=== PATIENT | male | born 1955 | race Caucasian/White ===

== ENCOUNTER 2017-03-31 05:30 | Inpatient (IN) | payer OTHER ==
[2017-03-29 13:22] LABS: BASOPHILS # (AUTO) 0.1 (0.0-0.1); BASOPHILS % 0.4 % (0.0-1.0); EOSINOPHILS # (AUTO) 0.2 (0.0-0.4); HEMATOCRIT 43.4 % (38.2-49.6); HEMOGLOBIN 14.9 g/dL (14.0-18.0); LYMPHOCYTES # (AUTO) 1.3 (1.0-3.2); MEAN CORPUSCULAR HEMOGLOBIN 33.6 pg (28-32); MEAN CORPUSCULAR HGB CONC 34.3 g/dL (31-35); MONOCYTES # (AUTO) 1.1 (0.2-0.8); MONOCYTES % 7.8 % (4.4-11.3); NEUTROPHILS # (AUTO) 11.6 (2.1-6.9); NEUTROPHILS % 81.3 % (38.7-80.0); PLATELET COUNT 469 x10e3/uL (140-360); RED BLOOD COUNT 4.43 x10e6/uL (4.3-5.7)
[2017-03-29 13:44] LABS: ALANINE AMINOTRANSFERASE 20 IU/L (0-55); ALBUMIN 3.7 g/dL (3.5-5.0); ALKALINE PHOSPHATASE 67 IU/L (40-150); ANION GAP 12.2 mmol/L (8-16); BLOOD UREA NITROGEN 15 mg/dL (7-26); BUN/CREATININE RATIO 14 (6-25); CALCIUM 9.5 mg/dL (8.4-10.2); CARBON DIOXIDE 27 mmol/L (22-29); CHLORIDE 102 mmol/L (98-107); CREATININE, SERUM 1.06 mg/dL (0.72-1.25); EST GLOMERULAR FILTRATION RATE > 60 ML/MIN (60-); GLUCOSE 99 mg/dL (74-118); POTASSIUM 4.2 mmol/L (3.5-5.1); SODIUM 137 mmol/L (136-145)
--- NOTE | 2017-03-29 13:50 | Diagnostic Imaging Report ---
PROCEDURE: Frontal and lateral views of the chest. COMPARISON: None. INDICATIONS: PREOPERATIVE CHEST XRAY FOR BLADDER SURGERY FINDINGS: Lines/tubes: None. Lungs: The lungs are well inflated and clear. Right upper lobe azygous lobe. There is no evidence of pneumonia or pulmonary edema. Pleura: There is no pleural effusion or pneumothorax. Heart and mediastinum: The heart and the mediastinum are normal. Bones: No acute bony abnormality. IMPRESSION: No acute cardiopulmonary disease. Dictated by: Kendell Boyle M.D. on 03/29/2017 at 13:58 Electronically approved by: Kendell Boyle M.D. on 03/29/2017 at 13:58
[~2017-03-31] VITALS: Ht 182.9 cm; Wt 88.9 kg
[2017-03-31] VITALS (39 sets, daily range): BP systolic 130–161; BP diastolic 76–110
[2017-03-31] MEDS ORDERED: CEFAZOLIN SOD 1 GM/NS 50ML 50 ML IV ONE (05:32)
[2017-03-31] MEDS ORDERED: CLINDAMYCIN 300MG 50 ML IV ONE (05:33)
[2017-03-31 06:07] LABS: BASOPHILS # (AUTO) 0.1 (0.0-0.1); BASOPHILS % 0.6 % (0.0-1.0); EOSINOPHILS # (AUTO) 0.2 (0.0-0.4); EOSINOPHILS % 1.3 % (0.0-6.0); HEMOGLOBIN 14.4 g/dL (14.0-18.0); LYMPHOCYTES # (AUTO) 1.1 (1.0-3.2); LYMPHOCYTES % 7.4 % (18.0-39.1); MEAN CORPUSCULAR HEMOGLOBIN 33.5 pg (28-32); MEAN CORPUSCULAR HGB CONC 34.3 g/dL (31-35); MEAN CORPUSCULAR VOLUME 97.7 fL (81-99); MONOCYTES % 6.8 % (4.4-11.3); NEUTROPHILS # (AUTO) 12.1 (2.1-6.9); NEUTROPHILS % 83.3 % (38.7-80.0); PLATELET COUNT 448 x10e3/uL (140-360); RED CELL DISTRIBUTION WIDTH 13.2 % (11.7-14.4)
[2017-03-31] MEDS: GENTAMICIN 80MG/NS 100 ML 100 ML IV SCH ×2 (06:19→18:27)
[2017-03-31] MEDS ORDERED: ACETAMINOPHEN 1000 MG/100 ML IV PRN (12:15)
[2017-03-31] MEDS ORDERED: DIPHENHYDRAMINE HCL INJ 50 MG/ML VIAL IM PRN (12:15)
[2017-03-31] MEDS ORDERED: ONDANSETRON HCL INJ 2 MG/ML VIAL IV PRN (12:15)
[2017-03-31] MEDS ORDERED: NALOXONE HCL INJ 0.4 MG/ML AMP IV PRN (12:15)
[2017-03-31] MEDS ORDERED: HYDROMORPHONE 2MG/ML INJ ONE (12:20)
[2017-03-31] MEDS ORDERED: MORPHINE SULFATE 1 MG/ML 30ML PCA ONE (13:08)
[2017-03-31] MEDS ORDERED: CEFAZOLIN SOD 1 GM/NS 50ML 50 ML IV SCH (14:00)
--- NOTE | 2017-03-31 14:06 | Diagnostic Imaging Report ---
PROCEDURE: CHEST SINGLE (PORTABLE) COMPARISON: Chest x-ray 03/29/17 INDICATIONS: POSSIBLE PNEUMOTHORAX FINDINGS: Portable image obtained at 1223 hrs. LUNGS: Lung volumes are low with prominent pulmonary vasculature and interstitial lung markings. Azygos lobe and fissure are present. There is focal consolidation in the base of the right lung. PLEURA: No large effusions. No pneumothorax. HEART \T\ MEDIASTINUM: Enteric tube extends past the diaphragm. The heart is top normal in size. BONES \T\ SOFT TISSUES: No acute findings. CONCLUSION: Low lung volumes and potential infiltrate in the right lung base. No pneumothorax. Dictated by: Braxton Hilliard M.D. on 03/31/2017 at 14:13 Electronically approved by: Braxton Hilliard M.D. on 03/31/2017 at 14:13
[2017-03-31] MEDS: D5.45%NS/KCL 20MEQ 1,000 ML IV SCH ×2 (15:10→20:02)
[2017-03-31] MEDS: CEFAZOLIN SOD 1 GM VIAL IV SCH (16:00)
[2017-03-31] MEDS: SODIUM CHLORIDE 0.9% 250ML IRRIG IR SCH ×3 (16:15→20:04)
[2017-03-31] MEDS ORDERED: SEVOFLURANE INHAL SOLN 250 ML PEN BTL ONE (18:19)
[2017-03-31] MEDS ORDERED: DEXAMETHASONE SOD PHOS INJ 4 MG/ML VIAL ONE (18:19)
[2017-03-31] MEDS ORDERED: ROCURONIUM BROMIDE 10 MG/ML 5ML VIAL ONE (18:19)
[2017-03-31] MEDS ORDERED: LIDOCAINE HCL 2% JELLY 5 ML TUBE ONE (18:19)
[2017-03-31] MEDS ORDERED: GLYCOPYRROLATE INJ 1MG/ 5 ML SYR ONE (18:19)
[2017-03-31] MEDS ORDERED: LIDOCAINE HCL 2% LOCAL INJ 5 ML SDV VIAL INJ ONE (18:19)
[2017-03-31] MEDS ORDERED: EPHEDRINE SULFATE INJ 50 MG/10 ML SYR ONE (18:19)
[2017-03-31] MEDS ORDERED: PROPOFOL IV EMULSION 10 MG/ML 20 ML VIAL ONE (18:19)
[2017-03-31] MEDS ORDERED: NEOSTIGMINE 5 MG/5ML SYR ONE (18:19)
[2017-03-31] MEDS ORDERED: ACETAMINOPHEN 1000 MG/100 ML IV ONE (18:19)
[2017-03-31] MEDS ORDERED: ONDANSETRON HCL INJ 2 MG/ML VIAL ONE (18:19)
[2017-03-31] MEDS ORDERED: MIDAZOLAM HCL 2 MG/2 ML VIAL ONE (18:34)
[2017-03-31] MEDS ORDERED: MORPHINE SULFATE INJ 10 MG/ML ONE (18:34)
[2017-03-31] MEDS ORDERED: FENTANYL CITRATE/PF 100MCG/2 ML INJ ONE (18:34)
[2017-03-31] MEDS: MORPHINE SULFATE 1 MG/ML 30ML PCA IV PRN (20:03)
[2017-04-01] VITALS (44 sets, daily range): BP systolic 122–158; BP diastolic 63–93
[2017-04-01] MEDS: CEFAZOLIN SOD 1 GM VIAL IV SCH ×3 (00:02→17:05)
[2017-04-01] MEDS: SODIUM CHLORIDE 0.9% 250ML IRRIG IR SCH ×7 (00:02→22:02)
[2017-04-01] MEDS: MORPHINE SULFATE 1 MG/ML 30ML PCA IV PRN ×2 (01:24→06:45)
[2017-04-01] MEDS: D5.45%NS/KCL 20MEQ 1,000 ML IV SCH ×3 (03:47→20:01)
[2017-04-01 05:37] LABS: BASOPHILS % 0.3 % (0.0-1.0); EOSINOPHILS # (AUTO) 0.1 (0.0-0.4); EOSINOPHILS % 0.5 % (0.0-6.0); HEMATOCRIT 41.5 % (38.2-49.6); HEMOGLOBIN 13.7 g/dL (14.0-18.0); LYMPHOCYTES # (AUTO) 1.1 (1.0-3.2); LYMPHOCYTES % 8.8 % (18.0-39.1); MEAN CORPUSCULAR HEMOGLOBIN 33.2 pg (28-32); MEAN CORPUSCULAR VOLUME 100.5 fL (81-99); MONOCYTES # (AUTO) 1.3 (0.2-0.8); MONOCYTES % 9.9 % (4.4-11.3); NEUTROPHILS # (AUTO) 10.3 (2.1-6.9); PLATELET COUNT 439 x10e3/uL (140-360); RED BLOOD COUNT 4.13 x10e6/uL (4.3-5.7); RED CELL DISTRIBUTION WIDTH 13.5 % (11.7-14.4)
[2017-04-01 06:06] LABS: ANION GAP 11.9 mmol/L (8-16); BLOOD UREA NITROGEN 7 mg/dL (7-26); BUN/CREATININE RATIO 8 (6-25); CALCIUM 8.4 mg/dL (8.4-10.2); CARBON DIOXIDE 25 mmol/L (22-29); CHLORIDE 109 mmol/L (98-107); CREATININE, SERUM 0.93 mg/dL (0.72-1.25); EST GLOMERULAR FILTRATION RATE > 60 ML/MIN (60-); GLUCOSE 150 mg/dL (74-118); POTASSIUM 3.9 mmol/L (3.5-5.1); SODIUM 142 mmol/L (136-145)
[2017-04-01] MEDS ORDERED: ACETAMINOPHEN 1000 MG/100 ML IV PRN (10:30)
--- NOTE | 2017-04-01 10:55 | History and Physical ---
PRIMARY CARE PROVIDER: Dr. Mikie Sanchez. Foundry Patternmaker: Dr. Juan Lovett. CHIEF COMPLAINT: Postoperative care. for invasive urinary bladder cancer. HISTORY OF PRESENT ILLNESS: Patient is a 61-year-old male with history of urinary bladder cancer diagnosed in March 2016. The patient is now status post radical cystoprostatectomy with urinary bladder exploration and subsequent ileal conduit diversion. The patient had invasive urinary bladder cancer. He now has a Araujo catheter in place. He had an ileal conduit nasogastric tube on the left nostril area. The patient is able in ICU. He has not had passed any flatus. The patient is otherwise stable. PAST MEDICAL HISTORY: Urinary bladder cancer, invasive, metastasis. ALLERGIES: NO KNOWN DRUG ALLERGIES. HOME MEDICATIONS: None. SOCIAL HISTORY: Patient does not smoke or use alcohol. No recreational drugs. REVIEW OF SYSTEMS: The patient has postoperative pain. Uncomfortable. He has not passed any gas. No neurological deficit. PHYSICAL EXAMINATION: VITAL SIGNS: Temperature is 97. Blood pressure 133/73. Pulse rate 96. Respirations 18. GENERAL: The patient is not in any acute distress. He is awake. HEENT: Normocephalic, atraumatic, anicteric. NG tube. NECK: Grossly supple. No JVD. PULMONARY: Diminished breath sounds without any wheezing. CARDIOVASCULAR: S1 and S2. Regular rate and rhythm. ABDOMEN: Is status post surgical intervention with the ileal conduit. : : A Araujo catheter in place. EXTREMITIES: No cyanosis or edema. NEUROLOGIC: No focal deficit. LABORATORY: Sodium is 142, potassium 3.9, chloride 104, bicarb 25, BUN 7, creatinine 0.9. Glucose 150. WBC 12.8. Hemoglobin 13.7. Hematocrit 41.5 and platelets 439,000. IMPRESSION: 1. Status post ileal conduit with radical cystectomy and prostatectomy. 2. Postoperative care. PLAN: Continue with management. Pain control. Araujo care. Nasogastric tube with suction. PT and OT. Patient should be able to get out of the ICU. He is to be monitored closely. Increase activity. Continue with antibiotic prophylaxis. IV fluid rehydration. Job#: [id number]
[2017-04-01] MEDS: HYDROMORPHONE 2MG/ML INJ IV PRN ×3 (13:02→20:20)
--- NOTE | 2017-04-01 17:23 | Diagnostic Imaging Report ---
EXAMINATION: Chest, CHEST SINGLE (PORTABLE) INDICATION: Enteric feeding catheter placement. COMPARISON: None FINDINGS: LINES: No catheter is visualized. Heart: Normal cardiac silhouette. Vascular: The pulmonary vasculature is within normal limits. Atherosclerotic calcifications of the aortic arch. Mediastinum: No mediastinal, hilar, or axillary mass or lymphadenopathy. Lungs: No parenchymal mass. No focal consolidation. Pleura: No pleural effusion. No pneumothorax. Bones: No acute osseous abnormality. Degenerative changes of the thoracic spine. Soft tissues: Normal. Impression: No acute radiographic abnormality. Signed by: Dr. Philip Montejo M.D. on 04/01/2017 5:20 PM
[2017-04-01] MEDS: ONDANSETRON HCL INJ 2 MG/ML VIAL IV PRN (21:02)
[2017-04-02] VITALS (7 sets, daily range): BP systolic 116–154; BP diastolic 63–76
[2017-04-02] MEDS: CEFAZOLIN SOD 1 GM VIAL IV SCH ×3 (00:05→15:42)
[2017-04-02] MEDS: D5.45%NS/KCL 20MEQ 1,000 ML IV SCH ×3 (00:05→19:33)
[2017-04-02] MEDS: ONDANSETRON HCL INJ 2 MG/ML VIAL IV PRN ×2 (01:10→05:17)
[2017-04-02] MEDS: HYDROMORPHONE 2MG/ML INJ IV PRN ×3 (01:11→21:12)
[2017-04-02] MEDS: SODIUM CHLORIDE 0.9% 250ML IRRIG IR SCH ×5 (03:15→19:33)
[2017-04-02 06:12] LABS: BASOPHILS # (AUTO) 0.1 (0.0-0.1); BASOPHILS % 0.3 % (0.0-1.0); EOSINOPHILS # (AUTO) 0.1 (0.0-0.4); EOSINOPHILS % 0.3 % (0.0-6.0); HEMATOCRIT 39.3 % (38.2-49.6); HEMOGLOBIN 13.2 g/dL (14.0-18.0); LYMPHOCYTES # (AUTO) 0.9 (1.0-3.2); LYMPHOCYTES % 5.6 % (18.0-39.1); MEAN CORPUSCULAR HEMOGLOBIN 33.6 pg (28-32); MEAN CORPUSCULAR HGB CONC 33.6 g/dL (31-35); MONOCYTES # (AUTO) 1.3 (0.2-0.8); MONOCYTES % 8.2 % (4.4-11.3); NEUTROPHILS # (AUTO) 13.5 (2.1-6.9); NEUTROPHILS % 85.2 % (38.7-80.0); PLATELET COUNT 418 x10e3/uL (140-360); RED BLOOD COUNT 3.93 x10e6/uL (4.3-5.7); RED CELL DISTRIBUTION WIDTH 13.5 % (11.7-14.4)
[2017-04-02 06:34] LABS: ANION GAP 11.8 mmol/L (8-16); BLOOD UREA NITROGEN 7 mg/dL (7-26); BUN/CREATININE RATIO 7 (6-25); CARBON DIOXIDE 25 mmol/L (22-29); CHLORIDE 110 mmol/L (98-107); CREATININE, SERUM 1.04 mg/dL (0.72-1.25); EST GLOMERULAR FILTRATION RATE > 60 ML/MIN (60-); GLUCOSE 129 mg/dL (74-118); POTASSIUM 3.8 mmol/L (3.5-5.1); SODIUM 143 mmol/L (136-145)
[2017-04-02] MEDS: BISACODYL 10 MG SUPP PR PRN (15:26)
[2017-04-03] VITALS (8 sets, daily range): BP systolic 118–152; BP diastolic 67–77
[2017-04-03] MEDS: SODIUM CHLORIDE 0.9% 250ML IRRIG IR SCH (00:15)
[2017-04-03] MEDS: HYDROMORPHONE 2MG/ML INJ IV PRN ×7 (00:24→23:07)
[2017-04-03] MEDS: CEFAZOLIN SOD 1 GM VIAL IV SCH ×3 (00:24→16:57)
[2017-04-03] MEDS: BISACODYL 10 MG SUPP PR PRN (06:14)
[2017-04-03 07:27] LABS: BASOPHILS # (AUTO) 0.1 (0.0-0.1); BASOPHILS % 0.5 % (0.0-1.0); EOSINOPHILS # (AUTO) 0.3 (0.0-0.4); HEMATOCRIT 40.2 % (38.2-49.6); HEMOGLOBIN 13.3 g/dL (14.0-18.0); LYMPHOCYTES # (AUTO) 1.2 (1.0-3.2); LYMPHOCYTES % 9.6 % (18.0-39.1); MEAN CORPUSCULAR HEMOGLOBIN 33.4 pg (28-32); MEAN CORPUSCULAR HGB CONC 33.1 g/dL (31-35); MONOCYTES % 7.6 % (4.4-11.3); NEUTROPHILS # (AUTO) 10.4 (2.1-6.9); NEUTROPHILS % 79.8 % (38.7-80.0); PLATELET COUNT 464 x10e3/uL (140-360); RED BLOOD COUNT 3.98 x10e6/uL (4.3-5.7); RED CELL DISTRIBUTION WIDTH 13.6 % (11.7-14.4)
[2017-04-03 07:54] LABS: ANION GAP 14.7 mmol/L (8-16); BLOOD UREA NITROGEN 7 mg/dL (7-26); BUN/CREATININE RATIO 8 (6-25); CALCIUM 9.1 mg/dL (8.4-10.2); CARBON DIOXIDE 25 mmol/L (22-29); CHLORIDE 108 mmol/L (98-107); EST GLOMERULAR FILTRATION RATE > 60 ML/MIN (60-); GLUCOSE 112 mg/dL (74-118); POTASSIUM 3.7 mmol/L (3.5-5.1); SODIUM 144 mmol/L (136-145)
[2017-04-03] MEDS: ONDANSETRON HCL INJ 2 MG/ML VIAL IV PRN ×2 (08:09→18:36)
[2017-04-03] MEDS: POTASSIUM CHL 40 MEQ in SODIUM CHLORIDE 0.45% 1,000 ML IV SCH ×2 (09:24→23:08)
[2017-04-03] MEDS: DOCUSATE SODIUM 100 MG CAP PO SCH (16:57)
[2017-04-04] VITALS (7 sets, daily range): BP systolic 134–152; BP diastolic 69–88
[2017-04-04 06:49] LABS: BASOPHILS # (AUTO) 0.1 (0.0-0.1); BASOPHILS % 0.6 % (0.0-1.0); EOSINOPHILS # (AUTO) 0.3 (0.0-0.4); HEMATOCRIT 37.8 % (38.2-49.6); HEMOGLOBIN 12.6 g/dL (14.0-18.0); LYMPHOCYTES # (AUTO) 0.8 (1.0-3.2); LYMPHOCYTES % 6.3 % (18.0-39.1); MEAN CORPUSCULAR HEMOGLOBIN 33.1 pg (28-32); MEAN CORPUSCULAR HGB CONC 33.3 g/dL (31-35); MEAN CORPUSCULAR VOLUME 99.2 fL (81-99); MONOCYTES # (AUTO) 0.9 (0.2-0.8); MONOCYTES % 6.9 % (4.4-11.3); NEUTROPHILS # (AUTO) 10.7 (2.1-6.9); NEUTROPHILS % 83.8 % (38.7-80.0); PLATELET COUNT 401 x10e3/uL (140-360); RED BLOOD COUNT 3.81 x10e6/uL (4.3-5.7); RED CELL DISTRIBUTION WIDTH 13.1 % (11.7-14.4)
[2017-04-04] MEDS: HYDROMORPHONE 2MG/ML INJ IV PRN ×5 (06:53→21:24)
[2017-04-04 07:11] LABS: ANION GAP 14.7 mmol/L (8-16); BLOOD UREA NITROGEN 10 mg/dL (7-26); BUN/CREATININE RATIO 13 (6-25); CALCIUM 8.7 mg/dL (8.4-10.2); CARBON DIOXIDE 23 mmol/L (22-29); CHLORIDE 106 mmol/L (98-107); CREATININE, SERUM 0.78 mg/dL (0.72-1.25); EST GLOMERULAR FILTRATION RATE > 60 ML/MIN (60-); GLUCOSE 97 mg/dL (74-118); POTASSIUM 3.7 mmol/L (3.5-5.1); SODIUM 140 mmol/L (136-145)
[2017-04-04] MEDS: DOCUSATE SODIUM 100 MG CAP PO SCH ×2 (08:52→15:26)
[2017-04-04] MEDS: CEFAZOLIN SOD 1 GM VIAL IV SCH ×4 (08:56→23:34)
[2017-04-04] MEDS: POTASSIUM CHL 40 MEQ in SODIUM CHLORIDE 0.45% 1,000 ML IV SCH (13:42)
[2017-04-04] MEDS: BISACODYL 10 MG SUPP PR PRN (15:38)
[2017-04-05] VITALS: BP 131/73
[2017-04-05] MEDS: HYDROMORPHONE 2MG/ML INJ IV PRN ×2 (02:43→08:21)
[2017-04-05] MEDS: POTASSIUM CHL 40 MEQ in SODIUM CHLORIDE 0.45% 1,000 ML IV SCH (02:43)
[2017-04-05 04:00] VITALS: BP 129/67
[2017-04-05] MEDS: DOCUSATE SODIUM 100 MG CAP PO SCH ×2 (07:49→08:11)
[2017-04-05] MEDS: CEFAZOLIN SOD 1 GM VIAL IV SCH ×2 (07:49→08:11)
[2017-04-05 08:00] VITALS: BP 141/78
--- NOTE | 2017-04-05 09:09 | Discharge Summary ---
MASH TUB COOKER: Dr. Juan Lovett FINAL DIAGNOSES: 1. Status post radical cystoprostatectomy with urinary bladder exploration and subsequent ileal conduit diversion. Patient procedure was done by Dr. Juan Lovett. 2. Status post leukocytosis. 3. Postoperative care. 4. Diagnosis of invasive urinary bladder cancer. SUMMARY: [id number] male with invasive urinary bladder cancer. He is status post procedures as mentioned done by Dr. Juan Lovett with radical cystoprostatectomy with urinary bladder exploration and subsequent ileal conduit diversion. The patient is otherwise stable. He had a prolonged postoperative care post surgery. Today, the patient is stable. He had bowel movement hours. He is able to tolerate his diet. He is comfortable. Not much needed pain medication. He is comfortable. The patient is stable and discharged home today. To follow up with Dr. Juan Lovett per his instructions for postoperative care. He will get Tylenol No. 3 as needed, Colace for stool softener. Patient will continue with postoperative care with the ileal conduit care per Dr. Juan Lovett orders. Patient is stable and discharged home today. Job#: [id number]
[2017-04-05] MEDS ORDERED: PNEUMOCOCCAL VACCINE POLYVALENT 23 MCG/0.5 ML VIAL IM SCH (11:15)
[2017-04-05] MEDS ORDERED: INFLUENZA VIRUS VAC SPLIT INJ 0.5 ML SYR IM SCH (11:15)
[2017-04-05 12:11] VITALS: BP 121/64
[2017-04-05 13:28] VITALS: BP 143/76
--- NOTE | 2017-06-08 01:49 | Operative Report ---
DATE OF PROCEDURE: March 31, 2017 PREOPERATIVE DIAGNOSIS: Bladder cancer. POSTOPERATIVE DIAGNOSIS: Bladder cancer. OPERATIONS PERFORMED: Abdominal and pelvic exploration with bilateral ureteroileal conduit. BATTING MACHINE OPERATOR INSULATION: Dr. Lili Lovett. ANESTHESIA: General. COMPLICATIONS: None. CLINICAL SUMMARY: Dov Reddy is a 61-year-old man who less than a year ago was diagnosed as having bladder cancer. Patient underwent resection followed by re-evaluation, followed by an induction course of intravesical BCG for T1 disease. The patient at followup surveillance was found to have a tumor recurrence. He was taken to the operating room where resection revealed muscle invasive disease. The patient scheduled this surgery which was supposed to be a radical cystoprostatectomy with an ileal conduit and urinary diversion for right after the . Patient was brought to the operating room for said plan. He is aware of the risks of bleeding, infection, injury to adjacent structures, need for additional procedures, and elected to proceed. Patient also understands that inability to cure his bladder cancer surgically is a possibility from this surgery. OPERATIVE PROCEDURE IN DETAIL: Informed consent was verified. Dov Reddy was properly identified, taken to the operating room, placed on the operating table in supine position. Anesthesia was uneventfully begun. The patient's abdomen and genitalia and chest were shaved, prepared, and draped in usual sterile fashion. Araujo catheter was placed. Midline incision was made, carried through all layers of the abdominal wall until we reached the perivesical space infraumbilically and the peritoneal space supraumbilically. We developed our dissection and placed a self-retaining retractor. Exploration revealed that the liver was smooth. There were no tumors on the liver. The patient's tumor encasing the bladder was fixed. This tumor has grown dramatically in the last month from what appeared to be a resectable tumor by CT to a tumor that now extends posteriorly and to the right lateral wall in a completely fixed fashion. The tumor is very large as well as firm and this was obviously not resectable. We also felt it would be dangerous to attempt pelvic lymphadenectomy due to the tumor and most likely tumor involvement of the lymph nodes present and the invasive nature of this cancer. We therefore decided to divert the patient with an ileal conduit and refer him for chemotherapy as early as possible. We set up for the ureteroileal conduit. The white line of Toldt bilaterally was taken down. We exposed both ureters. Both ureters as distally as possible, ligated and divided. We made a mesenteric window at the level of the sacral promontory and brought the left ureter into the right lower quadrant. We then harvested a piece of distal ileum. This was done utilizing a AKBAR stapling device. A [id number] stapled anastomosis was performed to reconstitute bowel continuity and the mesenteric window was closed to prevent internal herniation. We then performed an end-to-side ureteral-ileal anastomoses. These anastomoses were performed over a single J-stent. Each anastomosis utilized ten 4-0 Vicryl sutures in interrupted fashion. The single-J stents were also secured to the ileal conduit with a 5-0 chromic suture. It should be noted that at exploration there was right hydroureteronephrosis. This is also a new finding from the most recent cystoscopy and retrogrades during which time there was absolutely no hydronephrosis on the right hand side. Distal ureteral margins were negative according to the pathologist. We created a stoma to the right of the umbilicus. We cut out a piece of skin and subcutaneous tissues. Cruciate incision was then made in the abdominal wall fascia and we fashioned a Carmine stoma. The loop was secured to the corners of the cruciate incision at the level of the fascia with 4 interrupted Vicryl sutures and the stoma was matured utilizing chromic suture in order to invert and approximate the mucosa to the skin. A stomal stent was also fashioned from a 24-Swazi Araujo catheter. All 3 stents were secured to the skin with nylon sutures. Through a separate stab wound, we placed a Sandor drain to drain the pelvis and the intraperitoneal space and posteriorly to the ileal conduit. This drain was also secured to the skin with a nylon suture. Copious irrigation was performed. Hemostasis was verified. The patient's abdomen was then approximated utilizing interrupted Vicryl sutures to loosely reapproximate the peritoneum and the fascia was approximated with heavy Vicryl suture in interrupted figure-of-8 fashion. The skin was approximated with skin gunjan. An appliance was applied. Dressings to the stoma. Dressings were applied and the patient was uneventfully reversed from anesthesia and taken to the recovery room in stable condition. There were no complications to the procedure. Patient tolerated the procedure well. Sponge, needle, and instrument counts were grossly correct times 2 at the end of the case. For estimated blood loss, please refer to the anesthetic record. It should be noted that we were extremely disappointed at the operative findings and surprised at aggressiveness and growth of this patient's bladder cancer. Plans will be to refer the patient as early as possible for chemotherapeutic intervention. Job#: [id number] CF
== END 2017-04-05 15:42 | disposition home health service (06) | DRG 657 ==
LOC: OR 05:30 → ICU 13:12 → MED/SURG 04-01 10:38
PROVIDERS: ADMIT Internal Medicine; ATTEND Internal Medicine
PROC: 0T1807C Bypass Bilateral Ureters to Ileocutaneous with Autologous Tissue Substitute, Open Approach (ICD-10-PCS; principal; 2017-03-31 07:30)
DX: C67.8 Malignant neoplasm of overlapping sites of bladder (principal); C77.5 Secondary and unspecified malignant neoplasm of intrapelvic lymph nodes; N13.30 Unspecified hydronephrosis; Z23 Encounter for immunization
CPT/HCPCS: 36415; 71045; 71046; 80048; 80053; 83735; 85025; 86704; 86850; 86900; 86920; 87340; 87350; 88305; 88331; 90732; 93005; 96361; J0690; J1100; J1580; J2001; J2250; J2270; J2405; J3480

== ENCOUNTER 2017-04-07 12:10 | Inpatient (IN) | payer OTHER ==
[~2017-04-07] VITALS: Ht 182.9 cm; Wt 81.6 kg
[2017-04-07] MEDS ORDERED: ONDANSETRON HCL INJ 2 MG/ML VIAL IV STA (12:50)
[2017-04-07 13:00] LABS: BASOPHILS # (AUTO) 0.1 (0.0-0.1); BASOPHILS % 0.4 % (0.0-1.0); HEMATOCRIT 41.3 % (38.2-49.6); HEMOGLOBIN 14.9 g/dL (14.0-18.0); LYMPHOCYTES # (AUTO) 0.6 (1.0-3.2); MEAN CORPUSCULAR HEMOGLOBIN 33.3 pg (28-32); MEAN CORPUSCULAR HGB CONC 36.1 g/dL (31-35); MEAN CORPUSCULAR VOLUME 92.2 fL (81-99); MONOCYTES # (AUTO) 1.1 (0.2-0.8); MONOCYTES % 3.8 % (4.4-11.3); NEUTROPHILS # (AUTO) 26.9 (2.1-6.9); NEUTROPHILS % 92.9 % (38.7-80.0); PLATELET COUNT 489 x10e3/uL (140-360); RED BLOOD COUNT 4.48 x10e6/uL (4.3-5.7); RED CELL DISTRIBUTION WIDTH 12.4 % (11.7-14.4)
[2017-04-07] MEDS ORDERED: SODIUM CHLORIDE 0.9% 1000ML 1,000 ML IV SCH ×2 (13:00→15:15)
[2017-04-07] MEDS ORDERED: SODIUM CHLORIDE FLUSH 10 ML SYR INJ PRN (13:00)
[2017-04-07] MEDS ORDERED: PIPER-TAZ 3.375 GM 50 ML IV STA (13:07)
[2017-04-07] MEDS ORDERED: VANCOMYCIN 1GM/NS 250 ML 250 ML IV STA (13:07)
[2017-04-07 13:17] LABS: ALBUMIN 3.1 g/dL (3.5-5.0); ALBUMIN/GLOBULIN RATIO 0.8 (0.8-2.0); ANION GAP 20.2 mmol/L (8-16); CALCIUM 9.3 mg/dL (8.4-10.2); CREATININE, SERUM 1.95 mg/dL (0.72-1.25); POTASSIUM 3.2 mmol/L (3.5-5.1)
[2017-04-07 13:23] LABS: CREATINE KINASE MB 1.4 ng/mL (0.00-5.00)
--- NOTE | 2017-04-07 15:13 | Diagnostic Imaging Report ---
PROCEDURE: CT ABDOMEN AND PELVIS WITHOUT CONTRAST TECHNIQUE: The abdomen and pelvis were scanned utilizing a multidetector helical scanner from the diaphragm to the lesser trochanter after the oral administration of water. No IV contrast was administered due to low GFR Coronal and sagittal multiplanar reformations were obtained. COMPARISON: Patients [facility], CT, CT ABDOMEN/PELVIS WOW, 01/23/2017, 17:52. INDICATIONS: ABSCESS FINDINGS: ABSENCE OF INTRAVENOUS CONTRAST DECREASES SENSITIVITY FOR DETECTION OF FOCAL LESIONS AND VASCULAR PATHOLOGY. Multiple tree in bud opacities are noted in the lingula (series 2, image 5), left lower lobe (series 2, image 7) and posteromedial right lower lobe (series 2, image 6). Likely small hiatal hernia. Visualized liver, gallbladder, biliary tree, spleen, pancreas and adrenal glands, are unremarkable. Bilateral internal ureteral stents are noted in the kidneys/ureters, with urinary diversion and ostomy in the right lower quadrant/anterior pelvis. No hydronephrosis or hydroureter. No stones or renal contour abnormalities. Multiple mildly dilated, fluid-filled loops of small bowel are identified, with maximum diameter of approximately 4.1 cm (series 2, images 33-44), predominantly involving the jejunum, proximal and mid ileum. There is progressive tapering to normal caliber in the most distal portion of the ileum (series 2, images 61-67, with normal caliber and mild fecalization of the terminal ileum. Anastomotic sutures are noted in the most distal ileum (series 2, image 57). Stomach is moderately distended. Marked circumferential bladder wall thickening, which may be partly due to under distention, however, there is eccentric thickening in the posterior right bladder (series 2, image 77), similar to prior exam. No significant free fluid or fluid collections. Interval development of bilateral external iliac, common iliac and distal retroperitoneal adenopathy (for example a distal retroperitoneal node measures 1.2 cm on series 2, image 47, a left external iliac node measures 1.1 cm on series 2, image 70, a right external iliac node measures 1.3 cm (series 2, image 72). Atherosclerotic calcification of the abdominal aorta and iliac vessels. No aggressive lytic or sclerotic lesion. Postoperative changes in anterior abdominal wall, with multiple gunjan. 4.8 x 3.0 cm subcutaneous fluid collection anterior to the symphysis pubis (series 2, image 83). IMPRESSION: 1. No intra-abdominal fluid collections. A subcutaneous fluid collection anterior to the symphysis pubis measures simple fluid and may represent a postoperative seroma. Further characterization is limited by the lack of intravenous contrast. 2. Findings in the bowel suggestive of ileus. 3. Status post urinary diversion. Bilateral ureteral stents are noted. No hydronephrosis. 4. Marked bladder wall thickening, worse at the right posterior wall, likely representing bladder neoplasm, such as TCC. There is interval development of bilateral external iliac, common iliac, and distal retroperitoneal adenopathy, likely metastatic. 5. Multiple tree in bud opacities in the lingula, left lower lobe and posteromedial right lower lobe, suggesting endobronchial spread of infection. Endobronchial spread of malignancy is also a consideration, given the development of new adenopathy. Koffi Gonzalez M.D. Dictated by: Koffi Gonzalez M.D. on 04/07/2017 at 15:21 Electronically approved by: Koffi Gonzalez M.D. on 04/07/2017 at 15:21
[2017-04-07] MEDS ORDERED: METOCLOPRAMIDE HCL 10 MG/2ML VIAL IV ONE (15:15)
[2017-04-07] MEDS ORDERED: CHLORPROMAZINE HCL INJ 25 MG/ML AMP INJ ONE (16:30)
[2017-04-07] MEDS ORDERED: CHLORPROMAZINE HCL INJ 25 MG in SODIUM CHLORIDE 0.9% 50ML 50 ML IV NR (17:00)
[2017-04-07] MEDS ORDERED: NOREPINEPHRINE BITARTRATE/ NS 250 ML IV STA ×2 (19:00→23:19)
[2017-04-07 20:11] LABS: KETONES,URINE NEGATIVE (NEGATIVE); LEUKOCYTE ESTERASE ,URINE 2+ (NEGATIVE); NITRITE,URINE NEGATIVE (NEGATIVE); PROTEIN,URINE DIPSTICK 3+ (NEGATIVE); URINE UROBILINOGEN 0.2 mg/dL (0.2 - 1)
[2017-04-07 20:14] LABS: ABG PCO2 35 mmHg (41-51); ABG PH 7.55 (7.31-7.41)
[2017-04-07 20:15] LABS: ABG HCO3 31 mmol/L (23-28); ABG PO2 44 mmHg (80-105)
[2017-04-07 20:17] LABS: BILIRUBIN,URINE 1+ (NEGATIVE)
[2017-04-07 20:18] LABS: CLARITY,URINE SL CLOUDY (CLEAR); COLOR,URINE YELLOW (YELLOW)
[2017-04-07 20:24] LABS: BACTERIA,URINE FEW /HPF; EPITHELIAL CELLS,URINE RARE /LPF; RBC,URINE 21-50 /HPF (0-5)
--- NOTE | 2017-04-07 21:47 | Diagnostic Imaging Report ---
EXAM: CHEST SINGLE (PORTABLE), AP 1 view DATE: 04/07/2017 6:58 PM Time stamp on exam: 1913 hours INDICATION: Sepsis COMPARISON: AP view of the chest April 01, 2017 FINDINGS: LINES/TUBES: None LUNGS: No consolidations or edema. Incidental azygos lobe. PLEURA: No effusions or pneumothorax. HEART AND MEDIASTINUM: Normal size and contour. BONES AND SOFT TISSUES: No acute findings. IMPRESSION: No acute thoracic abnormality. Signed by: Dr. Stacie Arias M.D. on 04/07/2017 9:43 PM
[2017-04-07] MEDS ORDERED: GUAIFENESIN/CODEINE 10 ML CUP PO PRN (22:00)
[2017-04-07 22:08] LABS: ANION GAP 20.2 mmol/L (8-16); CALCIUM 8.2 mg/dL (8.4-10.2); CREATININE, SERUM 2.61 mg/dL (0.72-1.25); PHOSPHORUS 7.9 MG/DL (2.3-4.7); POTASSIUM 3.2 mmol/L (3.5-5.1)
[2017-04-07] MEDS ORDERED: PIPER-TAZ 3.375 GM 50 ML IV SCH (22:30)
[2017-04-07] MEDS ORDERED: VANCOMYCIN HCL 1GM/NS 250 ML BAG IV SCH ×2 (22:30→22:45)
[2017-04-07] MEDS ORDERED: NOREPINEPHRINE BITARTRATE/ NS 250 ML ONE (22:38)
[2017-04-08] MEDS: SODIUM CHLORIDE 0.9% 1000ML 1,000 ML IV SCH ×4 (01:53→22:22)
[2017-04-08 02:15] LABS: BASOPHILS # (AUTO) 0.1 (0.0-0.1); BASOPHILS % 0.4 % (0.0-1.0); HEMATOCRIT 33.3 % (38.2-49.6); HEMOGLOBIN 11.8 g/dL (14.0-18.0); LYMPHOCYTES # (AUTO) 0.5 (1.0-3.2); LYMPHOCYTES % 3.8 % (18.0-39.1); MEAN CORPUSCULAR HEMOGLOBIN 32.8 pg (28-32); MEAN CORPUSCULAR HGB CONC 35.4 g/dL (31-35); MEAN CORPUSCULAR VOLUME 92.5 fL (81-99); MONOCYTES # (AUTO) 0.4 (0.2-0.8); MONOCYTES % 3.1 % (4.4-11.3); NEUTROPHILS # (AUTO) 11.1 (2.1-6.9); NEUTROPHILS % 92.4 % (38.7-80.0); PLATELET COUNT 395 x10e3/uL (140-360); RED CELL DISTRIBUTION WIDTH 12.5 % (11.7-14.4)
[2017-04-08 02:36] LABS: ANION GAP 18.2 mmol/L (8-16); CALCIUM 7.5 mg/dL (8.4-10.2); CREATININE, SERUM 2.57 mg/dL (0.72-1.25); POTASSIUM 3.2 mmol/L (3.5-5.1)
[2017-04-08] MEDS ORDERED: PIPER-TAZ 3.375 GM 50 ML ONE (11:05)
[2017-04-08] MEDS: PIPER-TAZ 3.375 GM 50 ML IV SCH ×2 (11:09→18:13)
[2017-04-08] MEDS ORDERED: POTASSIUM CHLORIDE 10MEQ/100ML 200 ML IV ONE (12:00)
[2017-04-08] MEDS ORDERED: VANCOMYCIN HCL 1GM/NS 250 ML BAG IV SCH (13:00)
[2017-04-08] MEDS: VANCOMYCIN HCL 1GM/NS 250 ML BAG IV SCH (16:30)
[2017-04-08 16:55] LABS: CREATININE,URINE RANDOM 66.75 mg/dL (63-166)
--- NOTE | 2017-04-08 18:01 | Diagnostic Imaging Report ---
EXAM: VENTILATION PERFUSION LUNG SCAN INDICATION: 61 M with sepsis, pneumonia COMPARISON: Chest radiographs 04/08/2017 and 04/07/2017 DISCUSSION: Xenon-133 gas 15 mCi was administered via inhalation. Dynamic images of the lungs in the posterior projection were obtained through single breath and washout phases. Distribution of tracer activity is very irregular throughout the lungs. Washout is diffusely delayed with evidence of air trapping in the left lung base. Perfusion images of the lungs in multiple projections were obtained following intravenous administration of 6 mCi of Tc-99m MAA. Distribution of tracer is very irregular throughout the lungs. There are no segmental perfusion defects of any size. The contours of the lungs are well demarcated. The perfusion images are well-matched to the ventilation images. The cardiac silhouette is unremarkable. IMPRESSION: 1. Scan findings represent a VERY LOW probability for acute pulmonary embolic disease based on the PIOPED II criteria. 2. Scan findings are compatible with diffuse parenchymal and/or obstructive lung disease. Signed by: Dr. Luz Renae M.D. on 04/08/2017 5:58 PM
--- NOTE | 2017-04-08 21:19 | Consultation ---
DATE OF CONSULTATION: April 08, 2017 CONSULTATION CALLED BY: Emergency room. CHIEF COMPLAINT AND REASON FOR CONSULTATION: Pneumonia, renal insufficiency, status post cystectomy and bladder cancer. HISTORY OF PRESENT ILLNESS: Mr. Reddy is a 61-year-old male who recently underwent a urinary diversion for metastatic bladder cancer by Dr. Lovett. He is readmitted now with pneumonia. PAST MEDICAL HISTORY: As above. Please see prior H and P's for full review. MEDICATIONS: Please see MAR. ALLERGIES: NKDA. SOCIAL HISTORY: No smoking. No drinking. FAMILY HISTORY: No stones. REVIEW OF SYSTEMS: Noncontributory other than problems mentioned above for 12 organ systems. PHYSICAL EXAMINATION VITALS: Currently, he is afebrile with stable vital signs. GENERAL: Elderly male in no acute distress. HEENT: Sclerae are anicteric. NECK: Supple. BACK: Without costovertebral angle tenderness bilaterally. ABDOMEN: Soft. Nontender and nondistended. No palpable masses. No palpable hernias. No palpable groin lymphadenopathy. : Normal male external genitalia. EXTREMITIES: No edema. NEURO: Moves all 4 extremities. PSYCH: Alert. Mood appropriate. SKIN: Intact. No pallor. PERTINENT LABORATORY DATA: CT scan revealing no intra-abdominal fluid collection. Subcutaneous fluid collection anterior to the symphysis pubis likely postoperative seroma, ileus, bilateral ureteral stents noted, no hydronephrosis. Marked bladder wall thickening, worse at the right posterior wall, likely to represent bladder neoplasm. Bilateral external iliac, common iliac, distal retroperitoneal lymphadenopathy, likely metastatic. Multiple tree-in-bud opacities in the lingula, left lower lobe and posteromedial right lobe suggestive of endobronchial spread of infection versus malignancy. Hemoglobin 11, hematocrit 33, platelet count 395,000, white blood cell count 12,000. Sodium 126, potassium 3.2, chloride 86, bicarb 25, BUN 42, creatinine 2.63. Glucose 130. Urinalysis: 21 to 50 reds, 6 to 10 whites. IMPRESSION 1. Chronic renal insufficiency present prior to the patient's surgery. 2. Metastatic bladder cancer. 3. Urinary tract infections, which were present prior to the patient's cystectomy. 4. Microscopic hematuria present prior to the patient's cystectomy. 5. Hypokalemia. 6. Pneumonia. 7. Indwelling ureteral stents. PLAN: Multidisciplinary care. Overall, the patient's prognosis is extremely poor. Job#: [id number] MH
[2017-04-09] MEDS: PIPER-TAZ 3.375 GM 50 ML IV SCH ×4 (00:44→18:01)
[2017-04-09 04:30] LABS: BASOPHILS % 0.1 % (0.0-1.0); EOSINOPHILS # (AUTO) 0.1 (0.0-0.4); EOSINOPHILS % 0.9 % (0.0-6.0); HEMATOCRIT 28.2 % (38.2-49.6); HEMOGLOBIN 9.7 g/dL (14.0-18.0); LYMPHOCYTES # (AUTO) 0.7 (1.0-3.2); LYMPHOCYTES % 5.5 % (18.0-39.1); MEAN CORPUSCULAR HEMOGLOBIN 33.1 pg (28-32); MEAN CORPUSCULAR HGB CONC 34.4 g/dL (31-35); MONOCYTES # (AUTO) 0.6 (0.2-0.8); MONOCYTES % 4.5 % (4.4-11.3); NEUTROPHILS # (AUTO) 11.4 (2.1-6.9); NEUTROPHILS % 88.6 % (38.7-80.0); PLATELET COUNT 357 x10e3/uL (140-360); RED BLOOD COUNT 2.93 x10e6/uL (4.3-5.7); RED CELL DISTRIBUTION WIDTH 13.3 % (11.7-14.4)
[2017-04-09 04:35] LABS: MEAN CORPUSCULAR VOLUME 96.2 fL (81-99)
[2017-04-09 04:43] LABS: ANION GAP 11.9 mmol/L (8-16); BUN/CREATININE RATIO 21 (6-25); CALCIUM 7.8 mg/dL (8.4-10.2); CARBON DIOXIDE 24 mmol/L (22-29); CHLORIDE 98 mmol/L (98-107); EST GLOMERULAR FILTRATION RATE > 60 ML/MIN (60-); GLUCOSE 95 mg/dL (74-118); MAGNESIUM 2.4 MG/DL (1.3-2.1); PHOSPHORUS 2.2 MG/DL (2.3-4.7); SODIUM 131 mmol/L (136-145)
[2017-04-09 04:53] LABS: BLOOD UREA NITROGEN 20 mg/dL (7-26); CREATININE, SERUM 0.96 mg/dL (0.72-1.25); POTASSIUM 2.9 mmol/L (3.5-5.1)
[2017-04-09] MEDS: SODIUM CHLORIDE 0.9% 1000ML 1,000 ML IV SCH ×2 (06:40→20:37)
[2017-04-09] MEDS ORDERED: POTASSIUM CHLORIDE 20MEQ/100ML 200 ML IV ONE (06:45)
[2017-04-09] MEDS ORDERED: POTASSIUM CHLORIDE 10MEQ/100ML 200 ML ONE (07:23)
[2017-04-09] MEDS ORDERED: POTASSIUM CHLORIDE 100 ML IV ONE ×2 (08:15→12:30)
[2017-04-09] MEDS: FLUCONAZOLE 100 MG TAB PO SCH (13:43)
--- NOTE | 2017-04-09 14:44 | Diagnostic Imaging Report ---
EXAM: CHEST SINGLE (PORTABLE), AP 1 view DATE: 04/08/2017 5:00 AM Time stamp on exam: 0510 hours INDICATION: Pneumonia COMPARISON: AP view of the chest April 07, 2017 FINDINGS: LINES/TUBES: None LUNGS: Increasing atelectasis in each lung base. PLEURA: No effusions or pneumothorax. HEART AND MEDIASTINUM: Stable appearance. BONES AND SOFT TISSUES: No acute findings. IMPRESSION: Increasing atelectasis in each lung base. This could represent pneumonia in the appropriate clinical setting. Signed by: Dr. Stacie Arias M.D. on 04/08/2017 5:29 AM
[2017-04-09] MEDS: VANCOMYCIN HCL 1GM/NS 250 ML BAG IV SCH (17:00)
[2017-04-10] MEDS: PIPER-TAZ 3.375 GM 50 ML IV SCH ×4 (00:09→17:15)
[2017-04-10 02:51] LABS: BASOPHILS % 0.1 % (0.0-1.0); EOSINOPHILS # (AUTO) 0.1 (0.0-0.4); EOSINOPHILS % 0.9 % (0.0-6.0); HEMATOCRIT 28.4 % (38.2-49.6); HEMOGLOBIN 9.7 g/dL (14.0-18.0); LYMPHOCYTES # (AUTO) 0.8 (1.0-3.2); LYMPHOCYTES % 5.3 % (18.0-39.1); MEAN CORPUSCULAR HGB CONC 34.2 g/dL (31-35); MEAN CORPUSCULAR VOLUME 96.6 fL (81-99); MONOCYTES # (AUTO) 0.8 (0.2-0.8); MONOCYTES % 5.4 % (4.4-11.3); NEUTROPHILS # (AUTO) 12.8 (2.1-6.9); PLATELET COUNT 403 x10e3/uL (140-360); RED BLOOD COUNT 2.94 x10e6/uL (4.3-5.7); RED CELL DISTRIBUTION WIDTH 13.2 % (11.7-14.4)
[2017-04-10 02:59] LABS: ANION GAP 10.2 mmol/L (8-16); BLOOD UREA NITROGEN 8 mg/dL (7-26); BUN/CREATININE RATIO 10 (6-25); CALCIUM 7.9 mg/dL (8.4-10.2); CARBON DIOXIDE 24 mmol/L (22-29); CHLORIDE 102 mmol/L (98-107); CREATININE, SERUM 0.82 mg/dL (0.72-1.25); EST GLOMERULAR FILTRATION RATE > 60 ML/MIN (60-); GLUCOSE 96 mg/dL (74-118); MAGNESIUM 1.8 MG/DL (1.3-2.1); PHOSPHORUS 1.7 MG/DL (2.3-4.7); POTASSIUM 3.2 mmol/L (3.5-5.1); SODIUM 133 mmol/L (136-145)
--- NOTE | 2017-04-10 04:46 | Consultation ---
DATE OF CONSULTATION: April 08, 2017 NEPHROLOGY CONSULTATION REASON FOR CONSULTATION: Acute kidney injury. REASON FOR ADMISSION: Nausea, vomiting, possible pneumonia. HISTORY OF PRESENTING ILLNESS: Mr. Reddy is a 61-year-old male with a past medical history significant for bladder cancer, who was admitted with complaints of nausea, vomiting for the last couple of days. Patient states he has not been able to keep anything in, has been severely constipated as well and feels like he was very dehydrated and came in for the same. On admission it was noted that he had severe leukocytosis with his white count being 28.9 and YINKA with a creatinine of 2.6. His baseline creatinine on the 9th of this month earlier was 0.78. He was recently admitted for bladder cancer. At that time, he underwent ureteral diversion and has bilateral ureteral stents as well and had a urostomy created. He was doing fine after the surgery, he states, and he has never had a history of kidney failure. He, however, did note that his urine output through the urostomy was significantly low in the last couple of days, and he states that since he has been here it has been much better. He has not been eating much at all. He states he feels a lot better now; however, has back pain from lying on the stretcher. His leukocytosis improved with fluids. His hyponatremia, however, remains the same; so does hypokalemia and hypochloremia. He has hyperphosphatemia with a phosphorus of 7.9 on admission. At this time, patient is on fluids and has been started on antibiotics as well. Cultures are pending. He had a CT scan done of the abdomen and pelvis without contrast which showed tree-in-bud opacities in the lungs and no hydronephrosis or kidney stones. However, there was new lymphadenopathy in the abdomen as well, concerning for of malignancy. PAST MEDICAL HISTORY: Bladder cancer. PAST SURGICAL HISTORY 1. Ileal conduit creation. 2. Appendectomy. SOCIAL HISTORY: Denies any alcohol, drug or smoking abuse. FAMILY HISTORY: No kidney failure in family except in [id number], who is not related by blood. ALLERGIES: NO KNOWN ALLERGIES. MEDICATIONS: Reviewed in electronic medical record. REVIEW OF SYSTEMS: A 12-point review of systems was performed. Pertinent positives as per HPI. PHYSICAL EXAMINATION VITAL SIGNS: Temperature 99.4, pulse rate 101, respiratory rate 16 per minute, blood pressure 110/66. GENERAL: Resting comfortably in the stretcher in the ER. HEENT: Normocephalic, atraumatic. Moist mucous membranes. RESPIRATORY: Has decreased breath sounds in bilateral lung bases. Otherwise clear. CARDIOVASCULAR: Has tachycardia present. GASTROINTESTINAL: Abdomen soft with urostomy in the right lower quadrant and has a midline abdominal incision with gunjan in place and dressing in place. GENITOURINARY: No Araujo present. MUSCULOSKELETAL: No lower extremity edema appreciated. NEUROLOGICAL: AO x3. LABORATORY DATA: Sodium 126, potassium 3.6, chloride 86, bicarb 25, anion gap 18.2, BUN 42, creatinine 2.5, lactic acid 20, calcium 7.5, phosphorus 7.9, magnesium 3. On admission, creatinine was 1.95. WBC count 12, on admission 28.9. Hemoglobin 11.8. Platelet count 395. Blood gas with pH of 7.5, CO2 35, pO2 44, bicarb 31. Urinalysis with pH of 6, specific gravity 1.015, protein 3+, blood 4+, bilirubin 1+, leukocyte esterase 2+, RBCs 21-50, WBCs 6-10. IMAGING: CT abdomen/pelvis as described in HPI, and chest x-ray reviewed as well. IMPRESSION AND PLAN 1. Acute kidney injury. Likely has severe acute tubular necrosis with prolonged hypotension and poor p.o. intake and severe sepsis at this time. Dose antibiotics for a creatinine clearance of less than 30. Currently on Zosyn 3.375 q.6 for healthcare-associated pneumonia, which is renally dosed for kidney function at this time, will continue. Vancomycin is on 24-hour scheduled basis, will check vancomycin random levels. Continue with NS at 125 mL per hour at this time. Replace potassium cautiously and will send urine lytes as well and will monitor closely. Alkalosis appears to be a little better. 2. Hypokalemia. Replace, only 20 mEq given degree of CKD, and monitor. 3. Metabolic alkalosis with respiratory alkalosis, likely secondary to his continued vomiting and nausea and likely volume depletion as well. Should improve with volume repletion. Will monitor. 4. Hypovolemic hyponatremia. Will continue with fluids and monitor sodium as well. Will send urine sodium levels as well and check osmolality. 5. Anion gap high secondary to lactic acidosis and sepsis. On antibiotics. 6. Pneumonia. Likely postobstructive pneumonia. Continue with antibiotics renally dosed. Will monitor. 7. Hyperphosphatemia, likely secondary to acute kidney failure. Will continue with fluids, monitor, repeat in a.m.; and once he is able to tolerate p.o., will start phos binders as well if needed. 8. Bladder cancer status post urinary diversion with ileal conduit. Dr. Lovett has been consulted. Will follow up recommendations. Right now no signs of obstruction. However, urine does appear suggestive of UTI. Given that it is an ileal conduit, it is not very reliable. Will follow up cultures and monitor. Finally, thank you very much, Dr. Bhatt, for this consult. I will be very happy to follow this patient with you. Job#: [id number] EV
[2017-04-10] MEDS: SODIUM CHLORIDE 0.9% 1000ML 1,000 ML IV SCH ×2 (06:44→18:05)
[2017-04-10] MEDS: FLUCONAZOLE 100 MG TAB PO SCH (09:08)
--- NOTE | 2017-04-10 10:11 | Diagnostic Imaging Report ---
PROCEDURE: X-RAY CHEST, TWO VIEWS COMPARISON: Patients [facility], DX, CHEST SINGLE (PORTABLE), 04/08/2017, 5:10. INDICATIONS: POSSIBLE PNEUMONIA FINDINGS: LUNGS: There is a patchy right upper and lower lobe opacity. PLEURA: No effusions or pneumothorax. HEART \T\ MEDIASTINUM: The heart is within normal size-limits. BONES \T\ SOFT TISSUES: No acute findings. CONCLUSION: Right upper and lower lobe pneumonia. Kervin Ivory D.O. Dictated by: Kervin Ivory D.O. on 04/10/2017 at 10:19 Electronically approved by: Kervin Ivory D.O. on 04/10/2017 at 10:19
--- NOTE | 2017-04-10 12:32 | History and Physical ---
CHIEF COMPLAINT: Patient reports he does not remember exactly, but he was not feeling well and was short of breath when he came in. HPI: Mr. Reddy is a 61-year-old male who came in with constipation and tachycardia. He was having shortness of breath and hiccups. These symptoms started 3 days ago. The patient had surgery a week ago where he had a bladder procedure done by Dr. Lovett. The patient underwent radical cystoprostatectomy with urinary bladder exploration and subsequent ileal conduit diversion. The procedure was done by Dr. Juan Lovett. In the emergency room, the patient was found to be hypoxic. The O2 sat was 86% on 2 L. He is a lifelong nonsmoker. He was hypotensive and tachycardic. His blood pressure has been stable. He was in acute kidney injury as well. He is supposed to go to [facility] for followup for his bladder cancer, which he will be doing later. His creatinine on the 04 of April was 0.78. Today, it is 2.57. The patient has been started on IV hydration. He has been getting Levophed as well. He has a femoral line through which he is getting Levophed since last night. He denies any chest pain. He feels better now. REVIEW OF SYSTEMS GENERAL: Denies any fever or chills. HEAD: Denies any head trauma or head injury. ENT: Denies any earache, nosebleed or throat pain. CVS: Denies any chest pain. RESPIRATORY: Denies any shortness of breath now. Initially, he had it. GI: Abdominal distention. OTHER: The rest of the review of systems is negative except as in HPI. PAST MEDICAL HISTORY: None. PAST SURGICAL HISTORY: Radical cystoprostatectomy for bladder cancer. FAMILY AND SOCIAL HISTORY: He does not smoke and does not drink. He never smoked. He denies any family history of cancer. PHYSICAL EXAMINATION VITAL SIGNS: Temperature 99, pulse 90, blood pressure 114/71, respiratory rate 18, O2 sat 100%. SKIN: Warm and dry. GENERAL APPEARANCE: He is a middle-aged male not in any distress. He is awake and alert, following commands, responding to questions appropriately. HEENT: Head is atraumatic and normocephalic. Pupils are reactive. NECK: Supple. No JVD. Thyroid is not enlarged. No cervical lymphadenopathy. CHEST: Clear to auscultation bilaterally. No wheezing. No crackles. HEART: S1 and S2 audible. ABDOMEN: Distended. He has a nephrostomy and a surgical incision which is dressed. EXTREMITIES: No clubbing, cyanosis or edema. NEURO: Awake and alert. Following commands. LABS: Sodium 126, potassium 3.2, chloride 86, BUN 42, creatinine 2.57. White count 12,000. It was 28,000 yesterday. Hemoglobin 11.8. Platelets 395. CT of the abdomen and pelvis was done showing lymphadenopathy and also tree-in-bud opacities in lingula and lower lobe. I have reviewed the film. Blood gas which was done is showing pH 7.55, pCO2 35, pO2 44, and O2 sat 96%. ASSESSMENT/PLAN: A 61-year-old male presented with circulatory shock, acute kidney injury, dehydration, recent cystoprostatectomy due to bladder cancer. CURRENT PROBLEMS 1. Acute hypoxic respiratory failure. 2. Circulatory shock. Differential would be septic shock versus obstructive. 3. Hypoxia. 4. Acute kidney injury. PLAN 1. I will continue the patient on IV Zosyn and vancomycin as ordered. Possibility of intra-abdominal source of infection, however unlikely. 2. Dehydration. 3. Possibility of obstruction. Nephrostomy is draining. Urology consultation will be called. 4. Consult nephrology. 5. Will do a V/Q scan to rule out pulmonary embolism. Patient presented with hypoxia and hypotension and has malignancy. 6. Patient will be kept in ICU. 7. Levophed to keep the MAP more than or equal to 65. 8. O2 to keep the oxygen saturation more than or equal to 92%. Critical care time spent 50 minutes. Job#: [id number]
[2017-04-10] MEDS: VANCOMYCIN HCL 1GM/NS 250 ML BAG IV SCH (17:58)
[2017-04-10] MEDS: HEPARIN SOD (PORCINE) 5,000 UNIT/ML VIAL SC SCH (21:00)
[2017-04-10 21:53] VITALS: BP 146/83
[2017-04-10 22:00] VITALS: BP 146/83
[2017-04-10] MEDS: POTASSIUM PHOSPHATE 20 MM in SODIUM CHLORIDE 0.9% 250ML 250 ML IV SCH (22:11)
[2017-04-11] MEDS: PIPER-TAZ 3.375 GM 50 ML IV SCH ×4 (00:14→16:44)
[2017-04-11] MEDS ORDERED: SODIUM CHLORIDE 0.9% 250ML 250 ML ONE (00:18)
[2017-04-11] MEDS: POTASSIUM PHOSPHATE 20 MM in SODIUM CHLORIDE 0.9% 250ML 250 ML IV SCH (01:06)
[2017-04-11 04:00] VITALS: BP 148/86
[2017-04-11 06:48] LABS: BASOPHILS # (AUTO) 0.1 (0.0-0.1); BASOPHILS % 0.4 % (0.0-1.0); EOSINOPHILS # (AUTO) 0.2 (0.0-0.4); HEMATOCRIT 30.1 % (38.2-49.6); HEMOGLOBIN 10.3 g/dL (14.0-18.0); LYMPHOCYTES # (AUTO) 1.1 (1.0-3.2); LYMPHOCYTES % 7.5 % (18.0-39.1); MEAN CORPUSCULAR HEMOGLOBIN 32.9 pg (28-32); MEAN CORPUSCULAR HGB CONC 34.2 g/dL (31-35); MEAN CORPUSCULAR VOLUME 96.2 fL (81-99); MONOCYTES # (AUTO) 1.1 (0.2-0.8); MONOCYTES % 7.3 % (4.4-11.3); NEUTROPHILS # (AUTO) 12.3 (2.1-6.9); PLATELET COUNT 435 x10e3/uL (140-360); RED BLOOD COUNT 3.13 x10e6/uL (4.3-5.7); RED CELL DISTRIBUTION WIDTH 13.3 % (11.7-14.4)
[2017-04-11 07:12] LABS: ANION GAP 11.6 mmol/L (8-16); BLOOD UREA NITROGEN 7 mg/dL (7-26); BUN/CREATININE RATIO 9 (6-25); CALCIUM 7.8 mg/dL (8.4-10.2); CARBON DIOXIDE 22 mmol/L (22-29); CHLORIDE 108 mmol/L (98-107); CREATININE, SERUM 0.74 mg/dL (0.72-1.25); EST GLOMERULAR FILTRATION RATE > 60 ML/MIN (60-); GLUCOSE 97 mg/dL (74-118); MAGNESIUM 1.8 MG/DL (1.3-2.1); PHOSPHORUS 2.8 MG/DL (2.3-4.7); POTASSIUM 3.6 mmol/L (3.5-5.1); SODIUM 138 mmol/L (136-145)
[2017-04-11 08:00] VITALS: BP 135/77
[2017-04-11] MEDS: FLUCONAZOLE 100 MG TAB PO SCH (08:34)
[2017-04-11] MEDS: HEPARIN SOD (PORCINE) 5,000 UNIT/ML VIAL SC SCH ×2 (08:34→22:06)
[2017-04-11] MEDS: PHOSPHORUS 250 MG TAB PO SCH (09:30)
[2017-04-11 12:00] VITALS: BP 156/70
[2017-04-11 16:00] VITALS: BP 134/68
[2017-04-11] MEDS ORDERED: VANCOMYCIN 1GM/NS 250 ML 250 ML IV SCH (17:00)
[2017-04-11] MEDS ORDERED: LEVOFLOXACIN 500MG/D5W 100ML 100 ML IV SCH (17:15)
[2017-04-11] MEDS ORDERED: FLUCONAZOLE 200 MG/100 ML 100 ML IV SCH (17:30)
--- NOTE | 2017-04-11 18:38 | Consultation ---
DATE OF CONSULTATION: April 11, 2017 INFECTIOUS DISEASE CONSULTATION REASON FOR CONSULTATION: UTI. HISTORY OF PRESENT ILLNESS: Thank you so much for asking me to see this patient. This is a patient who is a 61-year-old white male who recently was diagnosed with bladder cancer, underwent surgery. He comes into the hospital on April 07 with a generalized feeling of not feeling well, doing poorly in general. The patient was evaluated. It was felt he had dehydration and maybe UTI; so, he was admitted. The patient was recently diagnosed with bladder cancer, underwent exploratory laparotomy, cystoprostatectomy, and a urinary bladder exploration with ileal conduit diversion. The patient was admitted. He was started on IV fluid. Blood cultures were obtained. The patient also had acute renal failure. He was supposed to go to [facility] for his bladder cancer. Infectious Disease was consulted today to make recommendation as to his antibiotic. The patient is telling me since admission he is doing much better. There is no fever, no chills, no nausea, no vomiting, no diarrhea, no pain. PAST MEDICAL HISTORY: As above. PAST SURGICAL HISTORY: As above. Radical cystoprostatectomy for bladder cancer. ALLERGIES: NKA. SOCIAL HISTORY: There is no smoking, drug abuse, alcohol abuse. FAMILY HISTORY: Hypertension. REVIEW OF SYSTEMS: HEENT: There is no headache or visual changes, hearing changes. GI: There is no nausea, no vomiting, no diarrhea. CARDIAC: There is no arrhythmia. NEURO: No seizure activity. SKIN: There is no other rash. LABORATORY DATA: On admission, his sodium 126, potassium 3.2, chloride 86, BUN 42, creatinine 2.56. White count 12,000, on admission it was 28,000. Hemoglobin 11.8. Patient was admitted with acute hypoxic respiratory failure which resolved, circulatory shock which has resolved, hypoxemia, ATN. Infectious disease was consulted today. His laboratory data reviewed. His white count today is 14.8, hemoglobin is 10, hematocrit is 30. His sodium 128, potassium 3.6, creatinine of 0.74 which is down from 2.7. His blood culture is negative. His urine culture showed 10 to 50 thousand yeast. His medication list: He was on vancomycin and Zosyn. His chest x-ray which was done on April 10 showed right upper lobe and lower lobe pneumonia. PHYSICAL EXAMINATION GENERAL: He is currently alert, oriented, does not seem to be in acute distress. VITAL SIGNS: Stable. Currently afebrile. HEENT: He does not appear icteric. NECK: Supple. CHEST: Clear bilaterally. HEART: S1 and S2. No S3 or S4, no murmur. ABDOMEN: Soft. Bowel sounds present. No tenderness. EXTREMITIES: No edema. IMPRESSION 1. Sepsis, resolved. 2. Funguria. 3. Pneumonia, probably healthcare-associated. 4. Bladder cancer, status post surgery as above. 5. Acute tubular necrosis, resolved. From infectious disease point of view, I would recommend to put him on Levaquin and Diflucan. Will check CBC, will check chem panel. Discontinue vancomycin, discontinue Zosyn. Will follow with you. Job#: [id number] SEFERINO
[2017-04-11] MEDS: FLUCONAZOLE 200 MG/100 ML 100 ML IV SCH (18:40)
[2017-04-11 20:00] VITALS: BP 149/79
[2017-04-11] MEDS: LEVOFLOXACIN 500MG/D5W 100ML 100 ML IV SCH (20:00)
[2017-04-12] VITALS (7 sets, daily range): BP systolic 141–156; BP diastolic 86–92
[2017-04-12 07:43] LABS: ANION GAP 15.7 mmol/L (8-16); BASOPHILS # (AUTO) 0.1 (0.0-0.1); BASOPHILS % 0.7 % (0.0-1.0); BLOOD UREA NITROGEN 9 mg/dL (7-26); BUN/CREATININE RATIO 13 (6-25); CALCIUM 8.7 mg/dL (8.4-10.2); CARBON DIOXIDE 20 mmol/L (22-29); CHLORIDE 106 mmol/L (98-107); CREATININE, SERUM 0.72 mg/dL (0.72-1.25); EOSINOPHILS # (AUTO) 0.2 (0.0-0.4); EOSINOPHILS % 1.4 % (0.0-6.0); EST GLOMERULAR FILTRATION RATE > 60 ML/MIN (60-); GLUCOSE 102 mg/dL (74-118); HEMATOCRIT 34.9 % (38.2-49.6); HEMOGLOBIN 11.8 g/dL (14.0-18.0); LYMPHOCYTES # (AUTO) 1.3 (1.0-3.2); LYMPHOCYTES % 8.8 % (18.0-39.1); MAGNESIUM 1.7 MG/DL (1.3-2.1); MEAN CORPUSCULAR HEMOGLOBIN 32.7 pg (28-32); MEAN CORPUSCULAR HGB CONC 33.8 g/dL (31-35); MEAN CORPUSCULAR VOLUME 96.7 fL (81-99); MONOCYTES # (AUTO) 1.3 (0.2-0.8); MONOCYTES % 8.4 % (4.4-11.3); NEUTROPHILS % 78.9 % (38.7-80.0); PHOSPHORUS 2.1 MG/DL (2.3-4.7); PLATELET COUNT 519 x10e3/uL (140-360); POTASSIUM 3.7 mmol/L (3.5-5.1); RED BLOOD COUNT 3.61 x10e6/uL (4.3-5.7); RED CELL DISTRIBUTION WIDTH 13.3 % (11.7-14.4); SODIUM 138 mmol/L (136-145)
[2017-04-12] MEDS: PHOSPHORUS 250 MG TAB PO SCH (09:10)
[2017-04-12] MEDS: HEPARIN SOD (PORCINE) 5,000 UNIT/ML VIAL SC SCH ×2 (09:14→20:10)
[2017-04-12] MEDS ORDERED: LACTULOSE SYRUP 20 GM/30 ML UDC PO PRN (12:15)
[2017-04-12] MEDS: DOCUSATE SODIUM 100 MG CAP PO SCH (12:39)
--- NOTE | 2017-04-12 13:09 | Progress Note ---
DATE: Mr. Reddy is doing well. He has no complaints. He is complaining of constipation. PHYSICAL EXAMINATION GENERAL: He is alert and oriented. He does not seem to be in acute distress. VITAL SIGNS: Stable. Afebrile. HEENT: He is not icteric. NECK: Supple. CHEST: Clear. COR: No murmur. ABDOMEN: Soft. Bowel sounds present. No tenderness. LABS: The white count today is 15.17, hemoglobin 11. Sodium 130, potassium 3.7, creatinine 0.72. IMPRESSION 1. Pneumonia, seems to be resolved. 2. Leukocytosis, may be funguria. Continue with Diflucan. Will discontinue Levaquin. 3. Constipation. Will give laxative of choice. 4. Recheck CBC in the morning or as an outpatient. Job#: [id number]
[2017-04-12] MEDS: METOPROLOL SUCCINATE 25 MG TAB XL PO SCH (14:33)
[2017-04-12] MEDS: FLUCONAZOLE 200 MG/100 ML 100 ML IV SCH (20:06)
[2017-04-12] MEDS: LEVOFLOXACIN 500MG/D5W 100ML 100 ML IV SCH (20:07)
[2017-04-13 00:45] VITALS: BP 149/82
[2017-04-13 05:14] VITALS: BP 159/88
[2017-04-13 06:30] LABS: BASOPHILS # (AUTO) 0.1 (0.0-0.1); BASOPHILS % 0.5 % (0.0-1.0); EOSINOPHILS # (AUTO) 0.4 (0.0-0.4); EOSINOPHILS % 2.4 % (0.0-6.0); HEMATOCRIT 32.5 % (38.2-49.6); HEMOGLOBIN 10.9 g/dL (14.0-18.0); LYMPHOCYTES # (AUTO) 1.6 (1.0-3.2); LYMPHOCYTES % 10.6 % (18.0-39.1); MEAN CORPUSCULAR HEMOGLOBIN 32.7 pg (28-32); MEAN CORPUSCULAR HGB CONC 33.5 g/dL (31-35); MEAN CORPUSCULAR VOLUME 97.6 fL (81-99); MONOCYTES # (AUTO) 1.2 (0.2-0.8); NEUTROPHILS # (AUTO) 11.2 (2.1-6.9); NEUTROPHILS % 76.1 % (38.7-80.0); PLATELET COUNT 548 x10e3/uL (140-360); RED BLOOD COUNT 3.33 x10e6/uL (4.3-5.7); RED CELL DISTRIBUTION WIDTH 13.5 % (11.7-14.4)
[2017-04-13 06:54] LABS: ANION GAP 12.9 mmol/L (8-16); BLOOD UREA NITROGEN 11 mg/dL (7-26); BUN/CREATININE RATIO 14 (6-25); CALCIUM 8.4 mg/dL (8.4-10.2); CARBON DIOXIDE 23 mmol/L (22-29); CHLORIDE 107 mmol/L (98-107); CREATININE, SERUM 0.77 mg/dL (0.72-1.25); EST GLOMERULAR FILTRATION RATE > 60 ML/MIN (60-); GLUCOSE 99 mg/dL (74-118); MAGNESIUM 1.9 MG/DL (1.3-2.1); PHOSPHORUS 2.7 MG/DL (2.3-4.7); POTASSIUM 3.9 mmol/L (3.5-5.1); SODIUM 139 mmol/L (136-145)
[2017-04-13 08:07] VITALS: BP 143/83
[2017-04-13] MEDS: METOPROLOL SUCCINATE 25 MG TAB XL PO SCH (08:11)
[2017-04-13] MEDS: DOCUSATE SODIUM 100 MG CAP PO SCH (08:11)
[2017-04-13] MEDS: PHOSPHORUS 250 MG TAB PO SCH (08:11)
[2017-04-13] MEDS: HEPARIN SOD (PORCINE) 5,000 UNIT/ML VIAL SC SCH (08:18)
[2017-04-13] MEDS ORDERED: METOPROLOL SUCC25 MG PO (12:00)
[2017-04-13] MEDS ORDERED: DIFLUCAN100 MG PO (12:01)
[2017-04-13] MEDS ORDERED: LEVAQUIN500 MG PO (12:01)
[2017-04-13 12:41] VITALS: BP 150/91
--- NOTE | 2017-04-13 13:52 | Discharge Summary ---
FINAL DIAGNOSES 1. Septic shock due to urinary tract infection. 2. History of cystoprostatectomy for bladder cancer. 3. Hypertension. 4. Acute kidney injury that has resolved now. 5. Fungal urinary tract infection. 6. Right upper lobe pneumonia. ADMISSION HISTORY AND HOSPITAL COURSE: Mr. Reddy is a 61-year-old male who presented to the emergency room with hypotension and renal failure. Patient was initially on IV Levophed for vasopressor. IV hydration was started. Nephrology was consulted. Patient remained hypotensive. A VQ scan was done, which showed no pulmonary embolism. Dr. Ivy was consulted as patient's urine culture showed Carmella albicans. He has nephrostomy. He underwent cystoprostatectomy for bladder cancer by Dr. Lovett. Patient gradually improved and was cleared by the urology, ID, and nephrology to be discharged. Patient will be discharged home. He has been hypertensive all along the hospital stay and has been started on metoprolol. Patient will be following up with his primary care physician, Dr. Lovett, and Dr. Ivy for followup. Discharge medication list is attached. I have given the prescription for Levaquin for 7 days, Diflucan for 7 days, and metoprolol. MATT DENT MD Job#: [id number] [facility]
== END 2017-04-13 12:40 | disposition home or self-care (01) | DRG 871 ==
LOC: ER 12:10 → ERHOLD 22:43 → MED/SURG2 04-10 21:26
PROVIDERS: ADMIT Internal Medicine; ATTEND Internal Medicine
PROC: 02HV33Z Insertion of Infusion Device into Superior Vena Cava, Percutaneous Approach (ICD-10-PCS; principal; 2017-04-07)
DX: A41.9 Sepsis, unspecified organism (principal); J96.01 Acute respiratory failure with hypoxia; N17.0 Acute kidney failure with tubular necrosis; R65.21 Severe sepsis with septic shock; E87.4 Mixed disorder of acid-base balance; J18.9 Pneumonia, unspecified organism; E87.1 Hypo-osmolality and hyponatremia; N18.3 Chronic kidney disease, stage 3 (moderate); B37.49 Other urogenital candidiasis; E86.0 Dehydration; C67.9 Malignant neoplasm of bladder, unspecified; Z93.6 Other artificial openings of urinary tract status; E87.6 Hypokalemia; Z96.0 Presence of urogenital implants; E87.8 Other disorders of electrolyte and fluid balance, not elsewhere classified; E83.39 Other disorders of phosphorus metabolism; K59.00 Constipation, unspecified; E83.41 Hypermagnesemia; I12.9 Hypertensive chronic kidney disease with stage 1 through stage 4 chronic kidney disease, or unspecified chronic kidney disease
CPT/HCPCS: 36415; 36555; 36600; 71045; 71046; 74176; 78582; 80048; 80053; 80202; 81001; 82150; 82550; 82553; 82570; 82805; 82948; 83605; 83690; 83735; 84100; 84300; 84484; 85025; 87040; 87086; 87493; 93005; 99284; A9540; A9558; J1450; J1644; J1956; J2405; J2543; J2765; J3230; J3370; J3480; J7030; J7050

== ENCOUNTER 2017-04-20 20:58 | Inpatient (IN) | payer BC, OTHER ==
[~2017-04-20] VITALS: Ht 182.9 cm; Wt 80.4 kg
[~2017-04-20 20:58] MED LIST: DEXAMETHASONE SOD PHOS INJ 4 MG/ML VIAL ONE; DIFLUCAN100 MG PO; FENTANYL CITRATE/PF 100MCG/2 ML INJ ONE; ISOFLURANE INHAL SOLN 250 ML BTL INH ONE; LEVAQUIN500 MG PO; LIDOCAINE HCL 2% LOCAL INJ 5 ML SDV VIAL INJ ONE; METOPROLOL SUCC25 MG PO; MIDAZOLAM HCL 2 MG/2 ML VIAL ONE; ONDANSETRON HCL INJ 2 MG/ML VIAL ONE; PROPOFOL IV EMULSION 10 MG/ML 20 ML VIAL ONE; ROCURONIUM BROMIDE 10 MG/ML 5ML VIAL ONE; SUCCINYLCHOLINE 200 MG/10 ML SYR ONE
[2017-04-20] MEDS ORDERED: CLINDAMYCIN PHOS 900MG/ D5W 50 50 ML IV ONE (21:36)
[2017-04-20 22:37] LABS: HEMATOCRIT 33.2 % (38.2-49.6); HEMOGLOBIN 11.1 g/dL (14.0-18.0)
[2017-04-20 22:49] LABS: INR 0.96; PROTHROMBIN TIME 13.3 seconds (11.9-14.5)
[2017-04-20 22:50] LABS: PARTIAL THROMBOPLASTIN TIME 24.7 seconds (23.8-35.5)
[2017-04-20 22:54] LABS: ANION GAP 14.1 mmol/L (8-16); BLOOD UREA NITROGEN 15 mg/dL (7-26); BUN/CREATININE RATIO 18 (6-25); CALCIUM 8.4 mg/dL (8.4-10.2); CARBON DIOXIDE 23 mmol/L (22-29); CHLORIDE 104 mmol/L (98-107); CREATININE, SERUM 0.83 mg/dL (0.72-1.25); EST GLOMERULAR FILTRATION RATE > 60 ML/MIN (60-); GLUCOSE 105 mg/dL (74-118); POTASSIUM 4.1 mmol/L (3.5-5.1); SODIUM 137 mmol/L (136-145)
[2017-04-21] VITALS (54 sets, daily range): BP systolic 98–136; BP diastolic 55–86
[2017-04-21] MEDS ORDERED: NALOXONE HCL INJ 0.4 MG/ML AMP IV PRN (00:15)
[2017-04-21] MEDS ORDERED: ONDANSETRON HCL INJ 2 MG/ML VIAL IV PRN (00:15)
[2017-04-21] MEDS ORDERED: MORPHINE SULFATE 5 MG/ML VIAL ONE (00:59)
--- NOTE | 2017-04-21 03:00 | Diagnostic Imaging Report ---
CHEST SINGLE (PORTABLE), 04/21/2017 12:12 AM Technique: CHEST SINGLE (PORTABLE) Comparison: 04/10/2017 Clinical history: Pneumothorax Findings: See Impression Impression: 1. Lines/Tubes: NG tube tip overlies the gastric antrum 2. Stable cardiomediastinal silhouette given differences in technique. 3. Mild lower lung reticular opacities have improved, presumed resolving infection. 4. No pneumothorax. Signed by: Dr Adriana Ryan MD on 04/21/2017 2:57 AM
[2017-04-21] MEDS: ACETAMINOPHEN 1000 MG/100 ML IV PRN ×2 (04:30→19:25)
[2017-04-21] MEDS: MORPHINE SULFATE 1 MG/ML 30ML PCA IV PRN ×2 (04:30→22:49)
[2017-04-21 06:04] LABS: BASOPHILS # (AUTO) 0.1 (0.0-0.1); BASOPHILS % 0.3 % (0.0-1.0); EOSINOPHILS % 0.1 % (0.0-6.0); HEMATOCRIT 35.6 % (38.2-49.6); HEMOGLOBIN 11.8 g/dL (14.0-18.0); LYMPHOCYTES # (AUTO) 1.3 (1.0-3.2); LYMPHOCYTES % 5.3 % (18.0-39.1); MEAN CORPUSCULAR HEMOGLOBIN 32.5 pg (28-32); MEAN CORPUSCULAR HGB CONC 33.1 g/dL (31-35); MEAN CORPUSCULAR VOLUME 98.1 fL (81-99); MONOCYTES # (AUTO) 1.1 (0.2-0.8); MONOCYTES % 4.5 % (4.4-11.3); NEUTROPHILS # (AUTO) 21.8 (2.1-6.9); NEUTROPHILS % 88.9 % (38.7-80.0); PLATELET COUNT 527 x10e3/uL (140-360); RED BLOOD COUNT 3.63 x10e6/uL (4.3-5.7); RED CELL DISTRIBUTION WIDTH 13.8 % (11.7-14.4)
[2017-04-21] MEDS: D5.45%NS/KCL 20MEQ 1,000 ML IV SCH ×3 (06:18→14:06)
[2017-04-21] MEDS: SODIUM CHLORIDE 0.9% 250ML IRRIG IR SCH ×6 (06:18→19:50)
[2017-04-21] MEDS: PIPER-TAZ 3.375 GM 50 ML IV SCH ×3 (06:19→21:03)
[2017-04-21 06:25] LABS: ANION GAP 12.2 mmol/L (8-16); BLOOD UREA NITROGEN 16 mg/dL (7-26); BUN/CREATININE RATIO 18 (6-25); CALCIUM 8.3 mg/dL (8.4-10.2); CARBON DIOXIDE 24 mmol/L (22-29); CHLORIDE 105 mmol/L (98-107); EST GLOMERULAR FILTRATION RATE > 60 ML/MIN (60-); GLUCOSE 128 mg/dL (74-118); MAGNESIUM 1.8 MG/DL (1.3-2.1); POTASSIUM 4.2 mmol/L (3.5-5.1); SODIUM 137 mmol/L (136-145)
[2017-04-21] MEDS: CLINDAMYCIN 300MG 50 ML IV SCH ×3 (06:52→21:56)
--- NOTE | 2017-04-21 06:52 | Operative Report ---
DATE OF PROCEDURE: April 20, 2017 PREOPERATIVE DIAGNOSIS: Abdominal wound dehiscence. POSTOPERATIVE DIAGNOSES 1. Abdominal wound dehiscence. 2. Intra-abdominal adhesions. OPERATIONS PERFORMED 1. Extensive lysis of adhesions. 2. Debridement of abdominal wound and closure of dehisced abdominal wound. CO-SURGEONS: Dr. Juan Lovett MD and Dr. Froy Gaytan MD. ANESTHESIA: General. COMPLICATIONS: None. CLINICAL SUMMARY: Dov Reddy is a 61-year-old man who was diagnosed with bladder cancer 1 year ago. The patient underwent transurethral resection followed by a second look cystoscopy with biopsy followed by an induction course of BCG. Initial surveillance cystoscopy was negative. Surveillance cystoscopy at 3 months later revealed recurrent tumor. Transurethral resection revealed muscle invasive tumor. At that time, CT scanning showed no evidence of disease extension beyond the bladder. The patient was taken to the operating room on March 31, 2017, with the intention of performing a radical cystectomy with ileal conduit and urinary diversion. The patient was found to have locally invasive disease with a fixed bladder and very large fixed cancer, and obvious bulky lymphadenopathy encasing the iliac vessels. The patient at that time also developed new right-sided hydroureteronephrosis. The patient underwent an ileal conduit urinary diversion. That incision was closed utilizing heavy Vicryl suture in interrupted [id number] fashion for the fascia. Postoperatively, the patient had tissues with constipation. He also had a readmission for pneumonia. The patient was referred to [facility]. He was evaluated there on April 18, 2017, and April 19, 2017, and they planned to begin chemotherapy some time in April. The patient's gunjan were removed postoperatively. Later this afternoon or in the early evening, the patient noted wound separation. The patient was taken to an outlying emergency room where he was found to have an abdominal dehiscence. He was emergently transferred to [facility], and taken to the operating room in an urgent fashion. Preoperatively, the patient understood the risks of bleeding, infection, need for additional procedures, potential for additional complications, and he elected to proceed. OPERATIVE PROCEDURE IN DETAIL: Informed consent was verified. Dov Reddy was properly identified and taken to the operating room, and placed on the operating table where general anesthesia was uneventfully begun. The patient was placed on the operating table in the supine position. All pressure points very carefully well-padded. All of his dressings and clothing were removed. His abdomen, urostomy, and urological stents were prepared and draped in the usual sterile fashion. We performed significant amount of adhesiolysis in order to separate loops of bowel that were adhered to the wound, as well as the anterior abdominal wall. Care was taken when dissecting around the ileal conduit in order to avoid injuring the ileal conduit. The wound was debrided of normal appearing tissue at its edges. The fascia was exposed circumferentially with careful dissection. Copious irrigation was performed. Expression of the abdomen revealed that the nasogastric tube was properly positioned. It revealed that the liver was smooth without any nodules nor masses. The bladder cancer appeared to have definitively grown in size in the last 3 weeks from the previous abdominal exploration indicating the severely aggressive nature of the cancer. After copiously irrigating again, we placed 7 retention suture with heavy Ethibond. We then utilized #1 Prolene suture in an interrupted figure-of-8 fashion to approximate the fascia. Prior to closure, a Sandor drain was placed through a separate stab incision and secured with 3-0 nylon suture, and placed in such a way as to drain the dependent most portion of the abdominal cavity, as well as the right lower quadrant behind the ileal conduit. We placed a flat Noah-Ryan drain to drain the subcutaneous space. This is brought through a separate stab incision and secured to the skin with a nylon suture. The subcutaneous subdermal tissues were approximated with interrupted Vicryl stricture. The skin was approximated with interrupted nylon suture in vertical mattress fashion, as well as skin gunjan. The retention sutures were tied down. Sterile dressings were applied. An appliance was applied to the ileal conduit. The patient was uneventfully reversed from anesthesia and taken to the recovery room in stable condition. There were no complications to the procedure. The patient tolerated the procedure well. Sponge, needle and instrument were both correct times 2 at the end of the case. Estimated blood loss was 200 mL. Will proceed with multidisciplinary postoperative care and initial management in the ICU, Hopefully, the patient will recover quickly from this surgery, and will be able to pursue the chemotherapy that he needs in a timely fashion. Job#: [id number] RI cc:FROY GAYTAN MD
--- NOTE | 2017-04-21 11:17 | History and Physical ---
Patient is status post abdominal dehiscence wound repair, extensive lysis of adhesions, debridement of abdominal wound and closure of dehisced abdominal wound done by Dr. Juan Lovett and Dr. Froy Gaytan. HISTORY: The patient is a 51-year-old male with extensive metastatic urinary bladder cancer. The patient is now status postoperative day #1. He is stable with NG tube in place. No passing of gas yet. The patient is in ICU for recovery. Lab work: WBC was 24,000. The patient's hemoglobin and hematocrit were 11.8 and 35.6. Platelets are 522. The patient is stable at this time. PAST MEDICAL HISTORY: History of cystoprostatectomy for urinary bladder cancer. He has a history of pneumonia, urinary tract infection and hypertension. Patient is status post surgery for abdominal wound dehiscence, extensive lysis of adhesions and also intra-abdominal adhesion lysis along with abdominal wound closure of dehisced abdomen. On March 31, 2017, the patient has ileal conduit urinary diversion. HOME MEDICATIONS: List reviewed. ALLERGIES: NO KNOWN ALLERGIES. SOCIAL HISTORY: Patient does not smoke or use alcohol. No recreational drug use. REVIEW OF SYSTEMS: Patient is comfortable on WOOD FLOOR REFINISHER pump, IV fluids, nothing by mouth. NG tube in place. PHYSICAL EXAMINATION GENERAL: The patient is comfortable with pain management at this time. VITAL SIGNS: Temperature is 98. Blood pressure 112/56. Pulse rate 122. Respirations 20. HEENT: Normocephalic, atraumatic. NG tube in place. PULMONARY: Diminished breath sounds. CARDIOVASCULAR: Tachycardia. ABDOMEN: Status postoperative day #1, ileal conduit. EXTREMITIES: No cyanosis or edema. NEURO: No focal deficit. LABORATORY: Sodium 137, potassium 4.2, chloride 105, bicarb 24, BUN 16, creatinine 0.9. Glucose 128. WBC is 24.5. Hemoglobin 11.8. Hematocrit 35.6 and platelets 527. IMPRESSION 1. Postoperative day #1 status post extensive lysis of abdominal wound and intra-abdominal adhesions. 2. Debridement of abdominal wall and closure of dehisced abdominal wound. 3. Urinary bladder cancer with metastases with recent ileal conduit. 4. Leukocytosis. 5. Pain management. PLAN: Continue with postoperative care. Repeated lab work. Continue with Zosyn and clindamycin IV antibiotics. SCDs to the lower extremities. Incentive spirometry when stable. Monitor the patient's abdominal wound. Will monitor the patient closely on his pain management. Job#: [id number]
[2017-04-21] MEDS: DIPHENHYDRAMINE HCL INJ 50 MG/ML VIAL IM PRN (19:25)
[2017-04-22] VITALS (39 sets, daily range): BP systolic 103–135; BP diastolic 62–81
[2017-04-22] MEDS: SODIUM CHLORIDE 0.9% 250ML IRRIG IR SCH ×6 (00:17→19:45)
[2017-04-22] MEDS: D5.45%NS/KCL 20MEQ 1,000 ML IV SCH ×3 (00:17→18:25)
[2017-04-22] MEDS: CLINDAMYCIN 300MG 50 ML IV SCH ×4 (05:54→23:12)
[2017-04-22 06:06] LABS: BASOPHILS # (AUTO) 0.1 (0.0-0.1); BASOPHILS % 0.5 % (0.0-1.0); EOSINOPHILS # (AUTO) 0.1 (0.0-0.4); EOSINOPHILS % 0.4 % (0.0-6.0); HEMATOCRIT 33.4 % (38.2-49.6); HEMOGLOBIN 10.8 g/dL (14.0-18.0); LYMPHOCYTES # (AUTO) 0.9 (1.0-3.2); LYMPHOCYTES % 4.3 % (18.0-39.1); MEAN CORPUSCULAR HEMOGLOBIN 32.8 pg (28-32); MEAN CORPUSCULAR HGB CONC 32.3 g/dL (31-35); MEAN CORPUSCULAR VOLUME 101.5 fL (81-99); MONOCYTES # (AUTO) 1.3 (0.2-0.8); MONOCYTES % 6.5 % (4.4-11.3); NEUTROPHILS # (AUTO) 17.2 (2.1-6.9); NEUTROPHILS % 87.8 % (38.7-80.0); PLATELET COUNT 451 x10e3/uL (140-360); RED BLOOD COUNT 3.29 x10e6/uL (4.3-5.7); RED CELL DISTRIBUTION WIDTH 14.1 % (11.7-14.4)
[2017-04-22] MEDS: PIPER-TAZ 3.375 GM 50 ML IV SCH ×3 (06:19→22:22)
[2017-04-22 06:32] LABS: ALANINE AMINOTRANSFERASE 12 IU/L (0-55); ALBUMIN 2.3 g/dL (3.5-5.0); ALBUMIN/GLOBULIN RATIO 0.6 (0.8-2.0); ALKALINE PHOSPHATASE 78 IU/L (40-150); ANION GAP 11.3 mmol/L (8-16); BLOOD UREA NITROGEN 13 mg/dL (7-26); BUN/CREATININE RATIO 12 (6-25); CALCIUM 8.4 mg/dL (8.4-10.2); CARBON DIOXIDE 27 mmol/L (22-29); CHLORIDE 107 mmol/L (98-107); CREATININE, SERUM 1.08 mg/dL (0.72-1.25); EST GLOMERULAR FILTRATION RATE > 60 ML/MIN (60-); GLUCOSE 146 mg/dL (74-118); POTASSIUM 4.3 mmol/L (3.5-5.1); SODIUM 141 mmol/L (136-145)
[2017-04-22] MEDS: MORPHINE SULFATE 1 MG/ML 30ML PCA IV PRN (11:10)
[2017-04-22] MEDS ORDERED: LORAZEPAM INJ 2 MG/ML VIAL IV PRN (12:30)
[2017-04-22] MEDS: PANTOPRAZOLE 40 MG 10ML VIAL IV SCH (14:42)
[2017-04-22] MEDS: METOPROLOL TARTRATE INJ 1 MG/ML VIAL IV SCH ×2 (14:42→18:00)
[2017-04-22] MEDS: DIPHENHYDRAMINE HCL INJ 50 MG/ML VIAL IM PRN (18:59)
[2017-04-23] VITALS (8 sets, daily range): BP systolic 113–125; BP diastolic 58–67
[2017-04-23] MEDS: SODIUM CHLORIDE 0.9% 250ML IRRIG IR SCH ×6 (00:33→19:41)
[2017-04-23] MEDS: CLINDAMYCIN 300MG 50 ML IV SCH ×3 (05:21→22:20)
[2017-04-23] MEDS: PIPER-TAZ 3.375 GM 50 ML IV SCH ×3 (06:00→23:10)
[2017-04-23 07:50] LABS: BASOPHILS # (AUTO) 0.1 (0.0-0.1); BASOPHILS % 0.4 % (0.0-1.0); EOSINOPHILS # (AUTO) 0.3 (0.0-0.4); EOSINOPHILS % 1.8 % (0.0-6.0); HEMATOCRIT 28.7 % (38.2-49.6); HEMOGLOBIN 9.4 g/dL (14.0-18.0); LYMPHOCYTES # (AUTO) 1.1 (1.0-3.2); LYMPHOCYTES % 6.7 % (18.0-39.1); MEAN CORPUSCULAR HEMOGLOBIN 33.6 pg (28-32); MEAN CORPUSCULAR HGB CONC 32.8 g/dL (31-35); MEAN CORPUSCULAR VOLUME 102.5 fL (81-99); MONOCYTES % 6.6 % (4.4-11.3); NEUTROPHILS # (AUTO) 13.3 (2.1-6.9); NEUTROPHILS % 84.1 % (38.7-80.0); PLATELET COUNT 434 x10e3/uL (140-360); RED CELL DISTRIBUTION WIDTH 14.3 % (11.7-14.4)
[2017-04-23] MEDS: D5.45%NS/KCL 20MEQ 1,000 ML IV SCH ×2 (08:07→20:30)
[2017-04-23 08:13] LABS: ALANINE AMINOTRANSFERASE 9 IU/L (0-55); ALBUMIN/GLOBULIN RATIO 0.5 (0.8-2.0); ALKALINE PHOSPHATASE 88 IU/L (40-150); ANION GAP 10.7 mmol/L (8-16); BLOOD UREA NITROGEN 11 mg/dL (7-26); BUN/CREATININE RATIO 12 (6-25); CALCIUM 8.5 mg/dL (8.4-10.2); CARBON DIOXIDE 27 mmol/L (22-29); CHLORIDE 107 mmol/L (98-107); CREATININE, SERUM 0.94 mg/dL (0.72-1.25); EST GLOMERULAR FILTRATION RATE > 60 ML/MIN (60-); GLUCOSE 114 mg/dL (74-118); POTASSIUM 3.7 mmol/L (3.5-5.1); SODIUM 141 mmol/L (136-145)
[2017-04-23] MEDS: PANTOPRAZOLE 40 MG 10ML VIAL IV SCH (08:36)
[2017-04-23] MEDS: ACETAMINOPHEN 1000 MG/100 ML IV PRN ×3 (09:13→21:39)
[2017-04-23] MEDS: METOPROLOL TARTRATE INJ 1 MG/ML VIAL IV SCH ×3 (12:10→17:30)
[2017-04-23] MEDS: MORPHINE SULFATE 1 MG/ML 30ML PCA IV PRN (16:28)
[2017-04-23] MEDS ORDERED: MORPHINE SULFATE 1 MG/ML 30ML PCA IV PRN (19:30)
[2017-04-24] VITALS: BP 134/65
[2017-04-24 04:00] VITALS: BP 127/72
[2017-04-24] MEDS: CLINDAMYCIN 300MG 50 ML IV SCH (05:58)
[2017-04-24] MEDS: METOPROLOL TARTRATE INJ 1 MG/ML VIAL IV SCH ×2 (05:58)
[2017-04-24] MEDS: PIPER-TAZ 3.375 GM 50 ML IV SCH ×3 (06:30→21:40)
[2017-04-24 07:04] LABS: BASOPHILS # (AUTO) 0.1 (0.0-0.1); BASOPHILS % 0.5 % (0.0-1.0); EOSINOPHILS # (AUTO) 0.5 (0.0-0.4); EOSINOPHILS % 3.4 % (0.0-6.0); HEMOGLOBIN 9.3 g/dL (14.0-18.0); LYMPHOCYTES % 6.5 % (18.0-39.1); MEAN CORPUSCULAR HEMOGLOBIN 32.6 pg (28-32); MEAN CORPUSCULAR HGB CONC 32.1 g/dL (31-35); MEAN CORPUSCULAR VOLUME 101.8 fL (81-99); MONOCYTES # (AUTO) 0.8 (0.2-0.8); MONOCYTES % 5.4 % (4.4-11.3); NEUTROPHILS # (AUTO) 12.7 (2.1-6.9); NEUTROPHILS % 83.8 % (38.7-80.0); PLATELET COUNT 446 x10e3/uL (140-360); RED BLOOD COUNT 2.85 x10e6/uL (4.3-5.7); RED CELL DISTRIBUTION WIDTH 14.2 % (11.7-14.4)
[2017-04-24 07:37] LABS: BLOOD UREA NITROGEN 9 mg/dL (7-26); BUN/CREATININE RATIO 10 (6-25); CALCIUM 8.9 mg/dL (8.4-10.2); CARBON DIOXIDE 25 mmol/L (22-29); CHLORIDE 107 mmol/L (98-107); CREATININE, SERUM 0.94 mg/dL (0.72-1.25); EST GLOMERULAR FILTRATION RATE > 60 ML/MIN (60-); GLUCOSE 113 mg/dL (74-118); SODIUM 141 mmol/L (136-145)
[2017-04-24] MEDS ORDERED: ACETAMINOPHEN 1000 MG/100 ML IV PRN (08:30)
[2017-04-24] MEDS ORDERED: MORPHINE SULFATE 4 MG/ML SYR IV PRN (08:30)
[2017-04-24 10:27] VITALS: BP 146/71
[2017-04-24] MEDS: PANTOPRAZOLE 40 MG 10ML VIAL IV SCH (11:00)
[2017-04-24] MEDS: METOCLOPRAMIDE HCL 10 MG TAB PO SCH ×2 (11:30→17:21)
[2017-04-24] MEDS: METOPROLOL SUCCINATE 25 MG TAB XL PO SCH (12:00)
[2017-04-24 12:47] VITALS: BP 128/77
[2017-04-24] MEDS: HYDROCODONE/APAP 10MG-325MG TAB PO PRN (17:22)
[2017-04-24 17:30] VITALS: BP 129/74
[2017-04-24 20:00] VITALS: BP 158/70
[2017-04-25] VITALS (7 sets, daily range): BP systolic 127–155; BP diastolic 66–83
[2017-04-25] MEDS: PIPER-TAZ 3.375 GM 50 ML IV SCH ×3 (06:00→22:00)
[2017-04-25 07:18] LABS: BASOPHILS # (AUTO) 0.1 (0.0-0.1); BASOPHILS % 0.4 % (0.0-1.0); EOSINOPHILS # (AUTO) 0.3 (0.0-0.4); EOSINOPHILS % 2.2 % (0.0-6.0); HEMATOCRIT 29.7 % (38.2-49.6); HEMOGLOBIN 9.6 g/dL (14.0-18.0); LYMPHOCYTES # (AUTO) 0.9 (1.0-3.2); LYMPHOCYTES % 6.6 % (18.0-39.1); MEAN CORPUSCULAR HEMOGLOBIN 32.2 pg (28-32); MEAN CORPUSCULAR HGB CONC 32.3 g/dL (31-35); MEAN CORPUSCULAR VOLUME 99.7 fL (81-99); MONOCYTES # (AUTO) 0.8 (0.2-0.8); MONOCYTES % 5.7 % (4.4-11.3); NEUTROPHILS # (AUTO) 11.4 (2.1-6.9); NEUTROPHILS % 84.7 % (38.7-80.0); PLATELET COUNT 438 x10e3/uL (140-360); RED BLOOD COUNT 2.98 x10e6/uL (4.3-5.7); RED CELL DISTRIBUTION WIDTH 13.7 % (11.7-14.4)
[2017-04-25 07:35] LABS: ANION GAP 14.6 mmol/L (8-16); BLOOD UREA NITROGEN 7 mg/dL (7-26); BUN/CREATININE RATIO 9 (6-25); CALCIUM 8.9 mg/dL (8.4-10.2); CARBON DIOXIDE 24 mmol/L (22-29); CHLORIDE 105 mmol/L (98-107); CREATININE, SERUM 0.81 mg/dL (0.72-1.25); EST GLOMERULAR FILTRATION RATE > 60 ML/MIN (60-); GLUCOSE 109 mg/dL (74-118); POTASSIUM 3.6 mmol/L (3.5-5.1); SODIUM 140 mmol/L (136-145)
[2017-04-25] MEDS ORDERED: ACETAMINOPHEN 1000 MG/100 ML IV PRN (08:30)
[2017-04-25] MEDS ORDERED: POTASSIUM CHLORIDE 10 MEQ TABCR PO ONE (08:45)
[2017-04-25] MEDS ORDERED: BISACODYL 10 MG SUPP PR PRN (08:45)
[2017-04-25] MEDS: SENNOSIDES 8.6 MG TAB PO SCH ×3 (09:00→17:00)
[2017-04-25] MEDS: METOPROLOL SUCCINATE 25 MG TAB XL PO SCH (09:26)
[2017-04-25] MEDS: PANTOPRAZOLE 40 MG 10ML VIAL IV SCH (09:26)
[2017-04-25] MEDS: METOCLOPRAMIDE HCL 10 MG TAB PO SCH ×3 (09:26→18:05)
[2017-04-25] MEDS ORDERED: MORPHINE SULFATE 2 MG/ML SYR IV PRN (16:30)
[2017-04-26] VITALS (8 sets, daily range): BP systolic 127–144; BP diastolic 61–74
[2017-04-26] MEDS: PIPER-TAZ 3.375 GM 50 ML IV SCH ×3 (05:51→22:01)
[2017-04-26 07:04] LABS: BASOPHILS # (AUTO) 0.1 (0.0-0.1); BASOPHILS % 0.5 % (0.0-1.0); EOSINOPHILS # (AUTO) 0.3 (0.0-0.4); EOSINOPHILS % 1.9 % (0.0-6.0); HEMATOCRIT 30.7 % (38.2-49.6); HEMOGLOBIN 10.1 g/dL (14.0-18.0); LYMPHOCYTES # (AUTO) 0.9 (1.0-3.2); LYMPHOCYTES % 7.2 % (18.0-39.1); MEAN CORPUSCULAR HEMOGLOBIN 32.5 pg (28-32); MEAN CORPUSCULAR HGB CONC 32.9 g/dL (31-35); MEAN CORPUSCULAR VOLUME 98.7 fL (81-99); MONOCYTES # (AUTO) 0.8 (0.2-0.8); MONOCYTES % 6.3 % (4.4-11.3); NEUTROPHILS # (AUTO) 10.9 (2.1-6.9); NEUTROPHILS % 83.6 % (38.7-80.0); PLATELET COUNT 463 x10e3/uL (140-360); RED BLOOD COUNT 3.11 x10e6/uL (4.3-5.7); RED CELL DISTRIBUTION WIDTH 13.8 % (11.7-14.4)
[2017-04-26 07:18] LABS: ANION GAP 13.1 mmol/L (8-16); BLOOD UREA NITROGEN 10 mg/dL (7-26); BUN/CREATININE RATIO 12 (6-25); CALCIUM 8.9 mg/dL (8.4-10.2); CARBON DIOXIDE 24 mmol/L (22-29); CHLORIDE 107 mmol/L (98-107); CREATININE, SERUM 0.81 mg/dL (0.72-1.25); EST GLOMERULAR FILTRATION RATE > 60 ML/MIN (60-); GLUCOSE 120 mg/dL (74-118); POTASSIUM 4.1 mmol/L (3.5-5.1); SODIUM 140 mmol/L (136-145)
[2017-04-26] MEDS: METOCLOPRAMIDE HCL 10 MG TAB PO SCH ×3 (07:34→16:58)
[2017-04-26] MEDS ORDERED: IOPAMIDOL 300MG/ML 100 ML INFUS..BTL IV ONE (08:26)
[2017-04-26] MEDS: SENNOSIDES 8.6 MG TAB PO SCH ×2 (08:40→16:58)
[2017-04-26] MEDS: PANTOPRAZOLE 40 MG 10ML VIAL IV SCH (08:40)
[2017-04-26] MEDS: METOPROLOL SUCCINATE 25 MG TAB XL PO SCH (08:40)
--- NOTE | 2017-04-26 10:48 | Diagnostic Imaging Report ---
Retrograde pyelogram 04/26/2017 Pre-Procedure Diagnosis: Urinary bladder cancer status post ileal conduit creation. Post-procedure Diagnosis:Urinary bladder status post ileal conduit creation. 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 Radiation Dose: 39.3 mGy (cumulative air kerma) Fluoroscopy time: 1.4 minutes Estimate blood loss: None Blood administered: None Complications: None Implants/Grafts: None Specimen: None Procedure: Informed consent was obtained and the patient placed supine. A timeout was performed. The indwelling double-J ureteral stents extending through the right lower quadrant ileal conduit were cannulated with a blunted fill 18-gauge needle. 20 mL of iodinated contrast was injected bilaterally and clamped. See findings below. The retention sutures at the ileal conduit were severed and the catheters removed without complication. Upright post removal radiographs were obtained. Findings: Floorleader radiograph: Indwelling double-J ureteral stents extending through the right lower quadrant ileal conduit. Retrograde pyelogram: Normal filling of the ureters bilaterally, without focal filling defect or contrast extravasation. Contrast fills around the indwelling stents and into the ileal conduit. Post stent removal radiographs: Patent ureters draining through a right lower quadrant ileal conduit. Impression: Retrograde pyelogram without evidence of contrast extravasation, gross ureteral stricture or filling defect. The ureteral stents were removed without complication. This report was generated with voice-recognition technology. Errors in ampoule examiner can occur. Please interpret accordingly and contact a radiologist if there are any questions regarding the report. Signed by: Dr. Brendon Morel M.D. on 04/26/2017 10:44 AM
[2017-04-27] VITALS (7 sets, daily range): BP systolic 122–151; BP diastolic 63–82
[2017-04-27] MEDS: PIPER-TAZ 3.375 GM 50 ML IV SCH (06:19)
[2017-04-27 07:10] LABS: BASOPHILS # (AUTO) 0.1 (0.0-0.1); BASOPHILS % 0.6 % (0.0-1.0); EOSINOPHILS # (AUTO) 0.4 (0.0-0.4); EOSINOPHILS % 2.3 % (0.0-6.0); HEMATOCRIT 32.3 % (38.2-49.6); HEMOGLOBIN 10.6 g/dL (14.0-18.0); LYMPHOCYTES # (AUTO) 1.4 (1.0-3.2); LYMPHOCYTES % 8.6 % (18.0-39.1); MEAN CORPUSCULAR HEMOGLOBIN 32.2 pg (28-32); MEAN CORPUSCULAR HGB CONC 32.8 g/dL (31-35); MEAN CORPUSCULAR VOLUME 98.2 fL (81-99); MONOCYTES % 6.2 % (4.4-11.3); NEUTROPHILS # (AUTO) 12.9 (2.1-6.9); NEUTROPHILS % 81.5 % (38.7-80.0); PLATELET COUNT 553 x10e3/uL (140-360); RED BLOOD COUNT 3.29 x10e6/uL (4.3-5.7)
[2017-04-27 07:35] LABS: ANION GAP 13.6 mmol/L (8-16); BLOOD UREA NITROGEN 11 mg/dL (7-26); BUN/CREATININE RATIO 14 (6-25); CALCIUM 8.9 mg/dL (8.4-10.2); CARBON DIOXIDE 23 mmol/L (22-29); CHLORIDE 107 mmol/L (98-107); CREATININE, SERUM 0.79 mg/dL (0.72-1.25); EST GLOMERULAR FILTRATION RATE > 60 ML/MIN (60-); GLUCOSE 112 mg/dL (74-118); POTASSIUM 3.6 mmol/L (3.5-5.1); SODIUM 140 mmol/L (136-145)
[2017-04-27] MEDS: SENNOSIDES 8.6 MG TAB PO SCH (07:41)
[2017-04-27] MEDS: PANTOPRAZOLE 40 MG 10ML VIAL IV SCH (08:29)
[2017-04-27] MEDS: METOCLOPRAMIDE HCL 10 MG TAB PO SCH (08:29)
[2017-04-27] MEDS: METOPROLOL SUCCINATE 25 MG TAB XL PO SCH (08:29)
[2017-04-27] MEDS ORDERED: AZTREONAM 1 GM/NS 50 ML 50 ML IV SCH (08:30)
[2017-04-27] MEDS ORDERED: ONDANSETRON HCL 4 MG ORAL DISINTEGRATING TAB PO PRN (08:30)
[2017-04-27] MEDS: VANCOMYCIN 1GM/NS 250 ML 250 ML IV SCH ×2 (09:37→21:11)
[2017-04-27] MEDS: AZTREONAM 1 GM VIAL IV SCH ×2 (09:37→23:44)
[2017-04-27] MEDS: METRONIDAZOLE 500MG/NS 100ML 100 ML IV SCH ×2 (15:39→23:44)
--- NOTE | 2017-04-27 16:06 | Consultation ---
DATE OF CONSULTATION: April 27, 2017 This is a patient of Dr. Thakkar. I want to thank Dr. Thakkar for consulting us on this pleasant gentleman and allowing us to participate in the medical illness of this pleasant gentleman. Mr. Reddy is a pleasant, 61-year-old male admitted before this visit on April 07, 2017. He was admitted with 3 days of tachycardia, shortness of breath, and hiccups. Had a bladder surgery done, exploration and subsequently an ileal conduit diversion was done by Dr. Lovett. He was stabilized and sent home about a week ago. He apparently sneezed as per my discussion with his , and his abdominal wound opened up. He was transferred back to [facility] for closure of the abdominal wound. The patient's abdominal wound was repaired and closed by Dr. Lovett and Dr. Gaytan. On admission, his white blood cells were elevated at 15.8. Since then, it has been going up and down. Today, it is 15.7. He has been off antibiotics. Azactam and vancomycin were started today. His MARU drains were removed. He had slurred speech a little bit as of last night. MRI of the brain is pending. I do not have any cultures available at this time. There were some cultures sent in today from the abdominal wound. Infectious disease consulted for leukocytosis. PAST MEDICAL HISTORY: History of cystoprostatectomy with urinary bladder cancer, pneumonia, urinary tract infection, hypertension, ileal conduit diversion, dehiscence of the surgical abdominal wound status post closure. ALLERGIES: NO KNOWN DRUG ALLERGIES. SOCIAL HISTORY: The patient denies ethanol or tobacco use. No illicit drugs either. MEDICATIONS: List has been reviewed. Per infectious disease, he is on Azactam and vancomycin, which were started today. LABORATORY VALUES: Creatinine is 0.79, white count 15.7, hemoglobin 10.6, platelet count 553. Abdominal wound culture is pending. RADIOLOGY STUDIES: The patient had retrograde pyelogram without evidence of extravasation, gross urethral stricture or filling defect. The ureteral stents were removed without complication. REVIEW OF SYSTEMS: No nausea, vomiting, fever, chills, chest pain, shortness of breath. is complaining of slurred speech as of last night. PHYSICAL EXAMINATION VITALS: Temperature 96.3, pulse 92, respirations 19, blood pressure 151/63. CVS: S1 and S2. CHEST: Equal expansion, clear to auscultation bilaterally. No acute distress. ABDOMEN: Soft, nontender. Retention suture is noted. MARU drains were reportedly just recently in the recent hour were removed, and some cultures were sent from the site. No obvious drainage noted. No erythema noted. HEENT: Moist. Not pale. No JVD. EXTREMITIES: Moves all. No edema. No acute distress. ASSESSMENT AND PLAN: A pleasant 61-year-old gentleman with recent bladder cancer, status post ileal conduit diversion with dehisced abdominal surgical wound, now status post closure with retention sutures. He remains leukocytotic. Antibiotics Azactam and vancomycin started today. Will add Flagyl at this point. Follow up with CBC and also get a blood culture. Will wait for the MRI of the brain. Will wait for the abdominal wound culture. Will wait for the blood culture, which was ordered as well today. I want to thank Dr. Thakkar for this kind consultation. This case was discussed with Dr. Ivy in detail. We will follow with you. Dictated by: GAVIN Hirsch Job#: [id number]
[2017-04-28] VITALS (8 sets, daily range): BP systolic 133–149; BP diastolic 64–77
[2017-04-28] MEDS: METRONIDAZOLE 500MG/NS 100ML 100 ML IV SCH ×3 (05:57→23:00)
--- NOTE | 2017-04-28 07:31 | Diagnostic Imaging Report ---
EXAMINATION: MRI of the brain without contrast. HISTORY: Aphasia, difficulty speaking for the last 2 days COMPARISON: None available TECHNIQUE: Sagittal T2; axial DWI, T2, FLAIR, T1-IR, T2 gradient echo; coronal FLAIR. IMAGE QUALITY: Adequate. FINDINGS: Parenchyma: 1. Scattered bilateral frontoparietal schmidt radiata and centrum semiovale foci of restricted diffusion, consistent with watershed acute infarcts. No hemorrhagic component. 2. Ill-defined wedge-shaped FLAIR hyperintensity with cluster of foci of restricted diffusion in the left inferior parietal lobule cortex and subcortical white matter, involving the supra marginal gyrus, possibly posterior superior temporal gyrus and posterior insular cortex, these findings explain patient's aphasia. There is no hemorrhagic component. 3. Additional a few scatter foci of white matter T2 and FLAIR hyperintense foci likely related to minimal chronic microvascular ischemic changes. 4. No mass, hemorrhage, acute or chronic infarcts. Skull: Unremarkable. Vessels: Expected flow voids present in the major arteries and dural sinuses. Extra-axial spaces: No abnormal signal intensity or mass effect. Brain volume: Within normal limits for age. Ventricles: No hydrocephalus or displacement. Foramen magnum: Unremarkable. Sella: Unremarkable. Paranasal / mastoid sinuses: No significant inflammatory disease. 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 No hemorrhagic component, significant mass effect or midline shift at this time. Signed by: Dr. Lisbeth Henriquez M.D. on 04/28/2017 7:24 AM
[2017-04-28 08:47] LABS: BASOPHILS # (AUTO) 0.1 (0.0-0.1); BASOPHILS % 0.7 % (0.0-1.0); EOSINOPHILS # (AUTO) 0.4 (0.0-0.4); EOSINOPHILS % 2.6 % (0.0-6.0); HEMATOCRIT 31.7 % (38.2-49.6); HEMOGLOBIN 10.4 g/dL (14.0-18.0); LYMPHOCYTES # (AUTO) 1.2 (1.0-3.2); LYMPHOCYTES % 7.6 % (18.0-39.1); MEAN CORPUSCULAR HEMOGLOBIN 32.5 pg (28-32); MEAN CORPUSCULAR HGB CONC 32.8 g/dL (31-35); MEAN CORPUSCULAR VOLUME 99.1 fL (81-99); MONOCYTES # (AUTO) 0.9 (0.2-0.8); MONOCYTES % 5.6 % (4.4-11.3); NEUTROPHILS # (AUTO) 12.6 (2.1-6.9); NEUTROPHILS % 82.9 % (38.7-80.0); PLATELET COUNT 628 x10e3/uL (140-360); RED CELL DISTRIBUTION WIDTH 14.2 % (11.7-14.4)
[2017-04-28] MEDS: PANTOPRAZOLE 40 MG 10ML VIAL IV SCH (08:56)
[2017-04-28] MEDS: AZTREONAM 1 GM VIAL IV SCH ×2 (08:56→21:05)
[2017-04-28] MEDS: METOPROLOL SUCCINATE 25 MG TAB XL PO SCH (08:58)
[2017-04-28 09:04] LABS: BLOOD UREA NITROGEN 9 mg/dL (7-26); BUN/CREATININE RATIO 12 (6-25); CALCIUM 8.8 mg/dL (8.4-10.2); CARBON DIOXIDE 23 mmol/L (22-29); CHLORIDE 108 mmol/L (98-107); CREATININE, SERUM 0.74 mg/dL (0.72-1.25); EST GLOMERULAR FILTRATION RATE > 60 ML/MIN (60-); GLUCOSE 102 mg/dL (74-118); SODIUM 139 mmol/L (136-145)
[2017-04-28 09:13] LABS: ALBUMIN 2.6 g/dL (3.5-5.0); BILIRUBIN,DIRECT 0.1 mg/dL (0.0-5.0)
[2017-04-28] MEDS: VANCOMYCIN 1GM/NS 250 ML 250 ML IV SCH ×2 (09:33→21:05)
[2017-04-28] MEDS: ASPIRIN 81 MG CHEW TAB PO SCH (12:54)
[2017-04-28] MEDS: ENOXAPARIN SOD INJ 40 MG/0.4 ML SYR SC SCH (18:06)
[2017-04-29] VITALS (7 sets, daily range): BP systolic 128–143; BP diastolic 68–76
--- NOTE | 2017-04-29 00:02 | Cardiology Report ---
DATE OF STUDY: April 28, 2017 ECHOCARDIOGRAM M-MODE: Normal chamber sizes. Left ventricular hypertrophy. Normal contractility. Normal mitral and aortic valves. No pericardial effusion. SECTOR SCAN: Normal chamber and wall dimensions. Normal contractility. Lipomatous hypertrophy is noted in the interatrial septum. No evidence of atrial or ventricular septal defect. Normal mitral, aortic, and tricuspid valves. No pericardial effusion. CARDIAC DOPPLER STUDY WITH COLOR: 1+ mitral regurgitation and tricuspid regurgitation. No evidence of atrial septal defect or ventricular septal defect with shunting. CONCLUSIONS 1. Lipomatous hypertrophy of the interatrial septum without evidence of atrial septal defect. 2. No evidence of ventricular septal defect. 3. Left ventricular hypertrophy with ejection fraction of 60%. 4. Mild mitral and tricuspid regurgitation. Job#: [id number] CF cc:CHERY SHERIDAN MD
[2017-04-29] MEDS: METRONIDAZOLE 500MG/NS 100ML 100 ML IV SCH (05:46)
[2017-04-29 08:20] LABS: BASOPHILS # (AUTO) 0.1 (0.0-0.1); BASOPHILS % 0.5 % (0.0-1.0); EOSINOPHILS # (AUTO) 0.4 (0.0-0.4); EOSINOPHILS % 2.5 % (0.0-6.0); HEMATOCRIT 31.7 % (38.2-49.6); HEMOGLOBIN 10.2 g/dL (14.0-18.0); LYMPHOCYTES # (AUTO) 1.3 (1.0-3.2); LYMPHOCYTES % 7.1 % (18.0-39.1); MEAN CORPUSCULAR HGB CONC 32.2 g/dL (31-35); MEAN CORPUSCULAR VOLUME 99.4 fL (81-99); MONOCYTES % 5.5 % (4.4-11.3); NEUTROPHILS # (AUTO) 14.7 (2.1-6.9); NEUTROPHILS % 83.7 % (38.7-80.0); PLATELET COUNT 644 x10e3/uL (140-360); RED BLOOD COUNT 3.19 x10e6/uL (4.3-5.7); RED CELL DISTRIBUTION WIDTH 14.3 % (11.7-14.4)
[2017-04-29 08:37] LABS: ANION GAP 11.5 mmol/L (8-16); BLOOD UREA NITROGEN 10 mg/dL (7-26); BUN/CREATININE RATIO 14 (6-25); CALCIUM 8.4 mg/dL (8.4-10.2); CARBON DIOXIDE 23 mmol/L (22-29); CHLORIDE 110 mmol/L (98-107); CREATININE, SERUM 0.74 mg/dL (0.72-1.25); EST GLOMERULAR FILTRATION RATE > 60 ML/MIN (60-); GLUCOSE 99 mg/dL (74-118); POTASSIUM 3.5 mmol/L (3.5-5.1); SODIUM 141 mmol/L (136-145)
[2017-04-29] MEDS: AZTREONAM 1 GM VIAL IV SCH ×2 (09:00→20:25)
[2017-04-29] MEDS: PANTOPRAZOLE 40 MG 10ML VIAL IV SCH (09:00)
[2017-04-29] MEDS: ASPIRIN 81 MG CHEW TAB PO SCH (09:00)
[2017-04-29] MEDS: METOPROLOL SUCCINATE 25 MG TAB XL PO SCH (09:00)
[2017-04-29] MEDS: ENOXAPARIN SOD INJ 40 MG/0.4 ML SYR SC SCH (17:00)
[2017-04-30] VITALS: BP 137/70
[2017-04-30] MEDS: HYDROCODONE/APAP 10MG-325MG TAB PO PRN (00:30)
[2017-04-30 04:00] VITALS: BP 132/73
[2017-04-30] MEDS: AZTREONAM 1 GM VIAL IV SCH (09:00)
[2017-04-30] MEDS: METOPROLOL SUCCINATE 25 MG TAB XL PO SCH (09:00)
[2017-04-30] MEDS ORDERED: CLOPIDOGREL BISULFATE 75 MG TAB PO SCH (09:00)
[2017-04-30] MEDS: ASPIRIN 81 MG CHEW TAB PO SCH (09:00)
[2017-04-30] MEDS: PANTOPRAZOLE 40 MG 10ML VIAL IV SCH (09:00)
--- NOTE | 2017-04-30 09:43 | Consultation ---
DATE OF CONSULTATION: April 28, 2017 at 1:30 p.m. NEUROLOGICAL CONSULTATION REASON FOR CONSULTATION: Confusion, slurred speech. This is a 61-year-old male who was admitted on April 20, 2017 for abdominal wound closure after abdominal surgery for apparent metastatic cancer of the bladder. The patient was complaining of some trouble with his expression. His is present during the interview. According to his , over the last 2-3 days he has been having trouble with his speech and then confused, which is the reason for this consultation. At the time of this examination, the patient is comfortable, lying down in bed. He denies any headaches, no dizziness, no speech or swallowing difficulty. At the present time, he is oriented to place and day and confused about the year. He said it is 05[birth year]16[birth year]. Right and left orientation is impaired. Finger name is impaired. The patient does not remember his address. PAST MEDICAL HISTORY: Cancer of the bladder. He underwent surgery and then abdominal wound repair. He also has history of pneumonia, urinary tract infection and hypertension. REVIEW OF SYSTEMS: All 12 steps negative. ALLERGIES: NO KNOWN DRUG ALLERGIES. MEDICATIONS: List of medications being reviewed. PHYSICAL EXAMINATION VITAL SIGNS: Blood pressure 142/68, pulse 92, temperature 97. LUNGS: Clear to auscultation. HEART: Regular sinus rhythm. There was no murmur. ABDOMEN: Tenderness. No organomegaly. LOWER EXTREMITIES: No edema, no cyanosis and no clubbing. NEUROLOGIC: He is awake, alert, follows commands. As mentioned, slurred speech. He is disoriented to time, difficulty naming the body parts, difficulty knowing his address. The patient seems to have some dysphasia. Cranial nerves: Pupils are both equal and reactive. Extraocular movements were full. Visual edmonds were normal. No facial weakness. Tongue protrudes midline. Palatal movement is normal. Motor power: The patient is able to elevate arms against gravity without any difficulty. Muscle strength, abduction of the arms 5/5. Flexion and extension of the arms 5/5. Dorsiflexion of the wrists 5/5. Finger extension 5/5. Hand strategic solutions consultant 5/5. Lower extremities, able to elevate each leg against gravity without any difficulty. Flexion of the hips 5/5. Flexion and extension of the knees 5/5. Dorsiflexion of the ankles 5/5. Plantar flexion 5/5 bilaterally. Plantar stimulation down bilaterally. Deep tendon reflexes: Triceps, biceps and radials 1+. Knee jerk 1+. Ankle jerk 1+. Plantar stimulation down bilaterally. HEAD: Normocephalic. NECK: Supple. Carotid pulsations were present bilaterally with no bruits. LABORATORY DATA: CBC shows white count of 15,200 with hemoglobin 10.4, hematocrit 31.7. Platelets 628,000, elevated. Chemistry: Sodium 139, potassium 4, BUN 9, creatinine 0.74. Estimated GFR greater than 60. Liver enzymes are all normal. IMAGING: MRI of the brain, he has multiple infarctions at the territorial and mid cerebral artery. Also, bilateral frontoparietal and schmidt radiata and centro semiovale small stroke, consistent with acute infarction. There is no hemorrhage. No mass affect. Echocardiogram, report pending. Carotid Doppler, report pending. IMPRESSION 1. Acute embolic stroke in the territorial and left mid cerebral artery and also in the right frontal and left frontal centro semiovale. 1. Postoperative abdominal surgery status. 2. Metastatic bladder cancer. RECOMMENDATIONS: Carotid Doppler, echocardiogram. Start aspirin and Plavix 75 mg daily. I have discussed with the attending physician the need for GEORGE. Job#: [id number]
[2017-04-30 10:26] VITALS: BP 146/69
[2017-04-30 11:31] LABS: BASOPHILS # (AUTO) 0.1 (0.0-0.1); BASOPHILS % 0.4 % (0.0-1.0); EOSINOPHILS # (AUTO) 0.3 (0.0-0.4); EOSINOPHILS % 1.7 % (0.0-6.0); HEMATOCRIT 30.9 % (38.2-49.6); HEMOGLOBIN 10.1 g/dL (14.0-18.0); LYMPHOCYTES # (AUTO) 1.1 (1.0-3.2); MEAN CORPUSCULAR HEMOGLOBIN 32.5 pg (28-32); MEAN CORPUSCULAR HGB CONC 32.7 g/dL (31-35); MEAN CORPUSCULAR VOLUME 99.4 fL (81-99); MONOCYTES # (AUTO) 1.1 (0.2-0.8); MONOCYTES % 6.4 % (4.4-11.3); NEUTROPHILS % 84.8 % (38.7-80.0); PLATELET COUNT 702 x10e3/uL (140-360); RED BLOOD COUNT 3.11 x10e6/uL (4.3-5.7); RED CELL DISTRIBUTION WIDTH 14.7 % (11.7-14.4)
[2017-04-30 11:51] LABS: ANION GAP 11.4 mmol/L (8-16); BLOOD UREA NITROGEN 10 mg/dL (7-26); BUN/CREATININE RATIO 14 (6-25); CALCIUM 8.2 mg/dL (8.4-10.2); CARBON DIOXIDE 24 mmol/L (22-29); CHLORIDE 107 mmol/L (98-107); CREATININE, SERUM 0.73 mg/dL (0.72-1.25); EST GLOMERULAR FILTRATION RATE > 60 ML/MIN (60-); GLUCOSE 102 mg/dL (74-118); POTASSIUM 3.4 mmol/L (3.5-5.1); SODIUM 139 mmol/L (136-145)
--- NOTE | 2017-04-30 14:55 | Progress Note ---
DATE: April 30, 2017 SUBJECTIVE: Mr. Reddy is doing quite well. He has no complaints. He wants to go home. OBJECTIVE GENERAL: Alert, oriented, does not seem to be in any acute distress. VITAL SIGNS: Stable, currently afebrile. HEENT: Not icteric. NECK: Supple. CHEST: Clear. HEART: S1 and S2, no murmur. ABDOMEN: Soft. The wound is clean. There is no drainage noted at the present time. LABORATORY DATA: Reviewed. His white count is 17.7, hemoglobin 10, hematocrit 30, platelets 702,000. Sodium 139, potassium 3.4, creatinine 0.73. His wound culture showed E. coli. Blood cultures are negative. On April 21, he had chest x-ray showing resolving pneumonia. He is currently on aztreonam. IMPRESSION AND PLAN: Leukocytosis, may be secondary to his pneumonia. His physical examination is better today. He wants to go home and follow up at [facility]. I have no problem discharging him on Ceftin and follow him as an outpatient in a week. Will check CBC and will check chem panel then. Job#: [id number]
--- NOTE | 2017-05-01 09:33 | Discharge Summary ---
FINAL DISCHARGE DIAGNOSES 1. Left middle cerebral artery cerebrovascular accident infarct. 2. Status post abdominal dehiscence and wound repair. 3. Extensive lysis of adhesions. 4. Debridement of abdominal wound and closure of dehiscence by Dr. Lovett and Dr. Gaytan. 5. History of bladder cancer. CONSULTANTS: Neurology, urology, general surgery, ID. Vital signs are stable. Labs reviewed. CANCEL DICTATION ELISABET FARRELL MD Job#: [id number] RI
--- NOTE | 2017-05-02 08:09 | Cardiology Report ---
DATE OF STUDY: April 28, 2017 DOPPLER SCAN OF THE CAROTID ARTERIES The left and right carotid arteries were interrogated using duplex scanning method. Left carotid artery showed moderate intimal thickening and plaquing particularly at the left carotid bulb extending into the left internal carotid artery. Velocity was 1.3 meters per second in the left common carotid artery. Left vertebral flow appears to be antegrade. Right carotid artery showed moderate intimal thickening and plaquing in the right carotid bulb extending to the right internal carotid artery. Velocity was 1.33 meters per second in the right common carotid artery. Right vertebral flow appears to be antegrade. CONCLUSIONS: 1. No high-grade stenosis bilaterally. 2. Moderate intimal thickening and plaquing at both carotid bulbs extending into both internal carotid arteries bilaterally. 3. Borderline velocity at 1.3 meters per second is noted in both common carotid arteries. 4. Vertebral flow appears to be in normal direction bilaterally. Job#: [id number] cc:CHERY SHERIDAN MD
--- NOTE | 2017-05-11 11:56 | Discharge Summary ---
FINAL DISCHARGE DIAGNOSES 1. Left middle cerebral artery accident infarct. 2. Status post abdominal wound dehiscence with repair. 3. Extensive lysis of adhesions. 4. Debridement of abdominal wound and closure of dehiscence by Dr. Lovett and Dr. Gaytan. 5. History of bladder cancer. 6. Wound infection. CONSULTANTS: Neurology, urology, general surgery and ID. VITAL SIGNS: Temperature is 97.6, pulse 99, respiratory rate 20, blood pressure 146/69, and pulse ox 97% on room air. LAB FINDINGS: White count 17, hemoglobin 10.1, hematocrit 31, platelets 702. Chemistry: Sodium 139, potassium 3.4, chloride 107, bicarb 24, anion gap 11, BUN 10, creatinine 0.7, glucose 102. Calcium is 8.2. LFTs were normal. Coagulations were normal. MICROBIOLOGY: Abdominal wound culture positive for E. coli. Blood cultures were no growth to date. IMAGING STUDIES: Chest x-ray showed mild lower lung reticular opacities have improved. No pneumothorax seen. Brain MRI showed consistent with acute infarcts in the left parietal lobe, left MCA distribution, bilateral centrum semiovale. No hemorrhagic component. No mass effect or midline shift at this time. The 2-D echo showed no evidence of atrial septal defect or ventricular septal defect. Carotid ultrasound showed moderate intimal thickening and flattening of both bulbs of internal carotids bilaterally, but there appears to be normal flow bilaterally. HOSPITAL COURSE: This is a 61-year-old male who came into the ED. He recently had status post abdominal wound repair. He comes in with a wound dehiscence. Urology and general surgery were consulted. Patient had extensive lysis of adhesions, debridement of abdominal wound and closure of dehiscence of the abdominal wound. The patient came in with an elevated white count, which urology, general surgery and ID were consulted. Patient has extensive metastatic urinary bladder cancer being followed up at [facility]. Medicine was consulted postoperatively on day 1 for further management and care. Patient continued on IV antibiotics. Wound cultures were consistent with E. coli. White count was elevated prior to discharge home but in discussion with ID recommends oral antibiotics for extended period of time and follow up with him in his office in 2 weeks. In relation to the surgical intervention performed, the patient was doing well, tolerating diet well, positive flatus with no other issues. Patient was cleared by urology as well as general surgery for discharge and needs followup in two weeks in their office. According to the records, patient had an ileal conduit urinary diversion back on March 31, 2017. At that time, he was found to have significant abdominal wound dehiscence and extensive lysis of adhesions with closure of the dehiscence of the abdomen. While in the hospital stay, the patient was noticed to have some slurred speech and some confusion concerning for a stroke. Neurology was consulted. MRI of the brain was consistent with a left MCA infarct requiring neurology consultation. Patient was started on aspirin and Plavix as well as statin. He also had PT and OT while in the hospital. Patient improved and was back to normal baseline prior to discharge home neurologically. Patient was cleared by neurology for discharge home as well. He will be discharged on aspirin, Plavix and statin as well. On discharge, the patient was cleared by all consultants including neurology, urology, general surgery and ID. He is to follow up tomorrow at [facility] to follow up with his oncologist. Patient is also advised to follow up with the appropriate consultants that he has seen here in the next 1-2 weeks. On discharge, vital signs were stable. Labs were reviewed and were stable. Patient was seen, evaluated and examined thoroughly on the day of discharge with no other complaints. Patient verbalized an understanding and agrees with the plan of care to follow up accordingly as an outpatient with the appropriate consultants as described above. DISCHARGE MEDICATIONS: See medicine reconciliation form including aspirin 81 mg daily, Plavix 75 mg daily and Lipitor 40 mg daily. DISPOSITION: To home. CONDITION: Stable. DIET: Heart healthy. FOLLOWUP: With the appropriate consultants as described above in 1 to 2 weeks and with [facility] oncologist tomorrow on May 01, 2017. In the event of any worsening symptoms, the patient was advised to come back to the ED for further evaluation. Discharge summary took greater than 35 minutes. ELISABET FARRELL MD Job#: [id number]
== END 2017-04-30 14:17 | disposition home or self-care (01) | DRG 901 ==
LOC: OR 20:58 → ICU 23:23 → MED/SURG 04-22 18:39
PROVIDERS: ADMIT Internal Medicine; ATTEND Internal Medicine
PROC: 0JB80ZZ Excision of Abdomen Subcutaneous Tissue and Fascia, Open Approach (ICD-10-PCS; principal; 2017-04-21)
PROC: 0WJJ0ZZ Inspection of Pelvic Cavity, Open Approach (ICD-10-PCS; 2017-04-21)
PROC: 0JN80ZZ Release Abdomen Subcutaneous Tissue and Fascia, Open Approach (ICD-10-PCS; 2017-04-21)
PROC: 0WQF0ZZ Repair Abdominal Wall, Open Approach (ICD-10-PCS; 2017-04-21)
PROC: 0TP98DZ Removal of Intraluminal Device from Ureter, Via Natural or Artificial Opening Endoscopic (ICD-10-PCS; 2017-04-26)
DX: T81.30XA Disruption of wound, unspecified, initial encounter (principal); I63.8 Other cerebral infarction; I63.412 Cerebral infarction due to embolism of left middle cerebral artery; T81.4XXA Infection following a procedure, initial encounter; B96.20 Unspecified Escherichia coli [E. coli] as the cause of diseases classified elsewhere; C67.9 Malignant neoplasm of bladder, unspecified
CPT/HCPCS: 36415; 70551; 71045; 74420; 80048; 80053; 80076; 80202; 83605; 83735; 85014; 85018; 85025; 85610; 85730; 87040; 87071; 87186; 87205; 88302; 88304; 92523; 93306; 93880; 96367; 96372; 97139; J1100; J1200; J1650; J2001; J2250; J2270; J2405; J2543; J3370; Q9967